=== PATIENT | female | born 1975 | race Caucasian/White ===

== ENCOUNTER → 2020-11-24 15:48 | Outpatient (CLI) | payer MEDICARE, MEDICAID, SELFPAY ==
--- NOTE | ~2020-11-24 | MM_ITS ---
EXAMINATION: MM screening charanjit BI w iggy HISTORY: Screening mammogram TECHNIQUE: Craniocaudal and mediolateral oblique 3-D tomosynthesis images were obtained and synthetic 2-D images were generated. CAD analysis was submitted and interpreted. COMPARISON: No prior mammogram is available for comparison at this institution. BREAST PARENCHYMAL COMPOSITION: The breasts are almost entirely fatty. FINDINGS: There are occasional benign-appearing microcalcifications. There is no evidence of suspicio us mass, calcification, or architectural distortion to suggest malignancy in either breast. There has been no suspicious interval change. IMPRESSION: 1. No mammographic evidence of malignancy. 2. Recommend routine screening mammography in one year. BI-RADS Category 2: Benign finding(s). Reviewed, dictated and finalized at location A.
== END ==
PROVIDERS: PCP Nurse Practitioner; Visit Provider Nurse Practitioner
DX: Z12.31 Encounter for screening mammogram for malignant neoplasm of breast (principal)
CPT/HCPCS: 77063; 77067

== ENCOUNTER 2021-06-02 08:41 | Outpatient (CLI) | payer OTHER, SELFPAY ==
--- NOTE | ~2021-06-02 | XR_ITS ---
XR knee LT 2V DATE: 06/02/2021 09:13 INDICATION: Left knee pain TECHNIQUE: AP and lateral views COMPARISON: None FINDINGS: There is slight periarticular spurring of the medial tibial plateau. No fracture or dislocation or joint effusion. No periosteal reaction or bone destruction. No radiopaq ue intra-articular loose body or chondral calcinosis. IMPRESSION: Minimal medial compartment osteoarthritis Reviewed, dictated and finalized at location A.
--- NOTE | ~2021-06-02 | XR_ITS ---
XR knee RT 2V DATE: 06/02/2021 09:13 INDICATION: Bilateral knee pain. No recent injury. TECHNIQUE: AP and lateral views COMPARISON: None FINDINGS: There is minimal periarticular spurring at the patellofemoral and medial compartments. No fracture or dislocation is evident. No radiopaque intra-articular loose body or chondrocalcinosis. No periosteal reaction or bone destruction. IMPRESSION: Mild osteoarthritis at the medial and patellofemoral compartments Reviewed, dictated and finalized at location A.
== END 2021-06-02 08:42 | disposition home or self-care (01) ==
DX: M17.0 Bilateral primary osteoarthritis of knee (principal)
CPT/HCPCS: 73560

== ENCOUNTER 2021-09-03 08:43 | Outpatient (CLI) | payer OTHER, SELFPAY ==
--- NOTE | ~2021-09-03 | XR_ITS ---
XR cervical spine 4-5V DATE: 09/03/2021 09:15 INDICATION: Neck pain TECHNIQUE: AP, lateral, swimmer views, mouth and swimmer views COMPARISON: 09/26/2014 MR cervical spine FINDINGS: There is reversal cervical curvature which may be due to muscle spasm. C1 and C2 are normally aligned and the odontoid process is intact. There is mild loss of interspace height and slight anterolisthesis at C2-3. There is slight anterolisthesis at C3-4. Moderately severe degenerative disc disease and anterior posterior spurring at C4-5, C5-6. Moderate degenerative disease at C6-7. There is uncovertebral joint spurring at C5-6 and C6-7. Bilateral prominent elongated C7 transverse processes. IMPRESSION: Reversal cervical curvature Cervical spondylosis, most pronounced at C4-5 and C5-6 Reviewed, dictated and finalized at location B.
--- NOTE | ~2021-09-03 | XR_ITS ---
EXAMINATION: XR lumbar spine 2-3V DATE: 09/03/2021 09:15 INDICATION: Low back pain TECHNIQUE: Anteroposterior and lateral views of the lumbar spine, and cone-down lateral view of the l umbosacral junction were obtained. COMPARISON: 07/30/2013 FINDINGS: There is a transitional S1 segment. There are 5 mm of anterolisthesis of L4 on L5. The vert ebral body heights are normal. There is mild loss of intervertebral disc space height at L3-4 and L4- 5. Small degenerative osteophytes project from the anterior endplates of multiple vertebral bodies. T here is moderate facet osteoarthritis of the lower lumbar spine. Phleboliths are noted in the pelvis. IMPRESSION: 1. Mild lumbar spondylosis with interval worsening since the comparison examination. Reviewed, dictated and finalized at location F. IMPRESSION: 1. Mild lumbar spondylosis with interval worsening since the comparison examina tion.
--- NOTE | ~2021-09-03 | XR_ITS ---
XR thoracic spine 2V DATE: 09/03/2021 09:15 INDICATION: Back pain TECHNIQUE: AP, lateral, swimmer views COMPARISON: None FINDINGS: Bilateral C7 elongated transverse processes. There are 11 rib-bearing thoracic vertebrae. There is prominent bridging osteophyte on the right at T8-9. No fracture or dislocation or bone destruction of the thoracic spine. The thoracic pedicles are intac t. No paraspinal soft tissue thickening. IMPRESSION: No fracture or bone destruction Prominent bridging osteophyte on the right at T8-9 Reviewed, dictated and finalized at location B.
== END 2021-09-03 08:44 | disposition home or self-care (01) ==
DX: M47.896 Other spondylosis, lumbar region (principal); M47.892 Other spondylosis, cervical region
CPT/HCPCS: 72050; 72070; 72100

== ENCOUNTER 2021-11-05 09:09 | Outpatient (CLI) | payer OTHER, SELFPAY ==
[2021-11-05 09:53] LABS: Basophils Absolute Auto 0.1 K/mm3 (0.0-0.1); Basophils Percent Auto 0.7 % (0.2-1.2); Eosinophils Absolute Auto 0.2 K/mm3 (0-0.3); Eosinophils Percent Auto 3.1 % (0-4.4); Hematocrit 43.2 % (37.0-47.0); Hemoglobin 13.7 g/dL (12.0-15.0); Immature Granulocyte Absolute 0.01 K/mm3 (0.00-0.031); Immature Granulocyte Percent A 0.1 % (0-0.5); Lymphocytes Absolute Auto 2.76 K/mm3 (0.9-3.2); Lymphocytes Percent Auto 40.9 % (18.3-44.2); Mean Corpuscular HGB Conc 31.7 g/dl (32-36); Mean Corpuscular Hemoglobin 28.3 pg (26-34); Mean Corpuscular Volume 89.3 fl (80-100); Mean Platelet Volume 11.3 fl (7.4-10.4); Monocytes Absolute Auto 0.6 K/mm3 (0.1-0.6); Monocytes Percent Auto 8.3 % (2.6-8.5); Neutrophils Absolute Auto 3.2 K/mm3 (1.3-6.7); Neutrophils Percent Auto 46.9 % (45.5-73.1); Platelet Count Result 183 k/mm3 (150-375); Red Blood Count 4.84 M/mm3 (4.2-5.4); Red Cell Distribution Width 13.8 % (11.5-14.5); White Blood Count 6.7 K/mm3 (4.5-10.0)
== END 2021-11-05 09:10 | disposition home or self-care (01) ==
LOC: ANHLAB 09:14
DX: L71.9 Rosacea, unspecified (principal)
CPT/HCPCS: 36415; 85025; 86038

== ENCOUNTER 2022-08-21 14:07 | Emergency (ER) | payer OTHER, SELFPAY ==
--- NOTE | ~2022-08-21 | CT_ITS ---
EXAMINATION: CT abdomen pelvis wo con DATE: 08/21/2022 16:26 INDICATION: Left flank pain, hematuria and nausea TECHNIQUE: Computed tomography (CT) of the abdomen and pelvis was performed without intravenous contr ast. The dose-length product was 657.77 mGy-cm. Automated exposure control and iterative reconstructi on technique were employed. COMPARISON: CT dated 08/06/2003. FINDINGS: Lung bases are unremarkable. Heart size normal. No significant pleural or pericardial effus ion. There is a small fat-containing umbilical hernia. There is left hydroureteronephrosis with exten sive periureteral edema extending into the pelvis. Bladder wall is mildly thickened with surrounding perivesical fatty infiltration. No renal stones identified. No ureteral stones. There is grade 1 dege nerative spondylolisthesis at L4-5. No acute osseous abnormality. The liver, spleen, pancreas, adrenal glands and right kidney are unremarkable. IMPRESSION: 1. Left hydroureteronephrosis with periureteral and perivesical fatty infiltration, suspicious for as cending urinary tract infection. Bladder is mildly thickened with surrounding inflammation, suspiciou s for cystitis. Alternatively, sequela of recently passed ureteral stone is possible. Reviewed, dictated and finalized at location A. IMPRESSION: 1. Left hydroureteronephrosis with periureteral and perivesical fatty infiltrat ion, suspicious for ascending urinary tract infection. Bladder is mildly thicke del[place] with surrounding inflammation, suspicious for cystitis. Alternatively, sequ tena of recently passed ureteral stone is possible.
[2022-08-21 14:18] VITALS: BP 150/99; PULSE 72; RESP 16; TEMP 36.8; O2SAT 100
[2022-08-21 14:31] LABS: Basophils Absolute Auto 0.1 K/mm3 (0.0-0.1); Basophils Percent Auto 0.5 % (0.2-1.2); Eosinophils Absolute Auto 0.2 K/mm3 (0-0.3); Eosinophils Percent Auto 1.4 % (0-4.4); Hematocrit 42.8 % (37.0-47.0); Hemoglobin 13.6 g/dL (12.0-15.0); Immature Granulocyte Absolute 0.02 K/mm3 (0.00-0.031); Immature Granulocyte Percent A 0.2 % (0-0.5); Lymphocytes Absolute Auto 2.62 K/mm3 (0.9-3.2); Lymphocytes Percent Auto 23.8 % (18.3-44.2); Mean Corpuscular HGB Conc 31.8 g/dl (32-36); Mean Corpuscular Hemoglobin 28.5 pg (26-34); Mean Corpuscular Volume 89.5 fl (80-100); Mean Platelet Volume 10.9 fl (7.4-10.4); Monocytes Absolute Auto 0.6 K/mm3 (0.1-0.6); Monocytes Percent Auto 5.8 % (2.6-8.5); Neutrophils Absolute Auto 7.5 K/mm3 (1.3-6.7); Neutrophils Percent Auto 68.3 % (45.5-73.1); Platelet Count Result 200 k/mm3 (150-375); Red Blood Count 4.78 M/mm3 (4.2-5.4); Red Cell Distribution Width 12.8 % (11.5-14.5)
[2022-08-21 14:48] LABS: Add Urine Microscopic? YES; Appearance Urine Clear (Clear); Bacteria Urine 1+ /hpf; Bilirubin Urine Negative (Negative); Blood Urine 1+ (Negative); Color Urine Yellow (Yellow); Glucose Urine UA Negative (Negative); Ketones Urine Trace mg/dL (Negative); Leukocyte Esterase Ur 1+ LEU/UL (Negative); Nitrate Urine Positive (Negative); Non Pathogenic Casts 0-2; Protein Urine 3+ mg/dL (Negative); Specific Grav Ur 1.017 (1.001-1.035); Squamous Epithelial Cell Urine None seen /hpf (Few); Urobilinogen Urine 0.2 mg/dL (<2.0); WBC Urine 51-100 /hpf; pH Urine 5.5 (5.0-9.0)
[2022-08-21 14:49] LABS: Alanine Aminotransferase 21 U/L (6-35); Albumin Level 4.7 g/dL (3.5-5.1); Alkaline Phosphatase 80 U/L (38-126); Anion Gap 7 mmol/L (8-16); Aspartate Amino Transferase 31 U/L (14-36); Bilirubin,Total 0.3 mg/dL (0.2-1.3); Blood Urea Nitrogen 14 mg/dL (7-17); Calcium 9.1 mg/dL (8.4-10.2); Carbon Dioxide 27 mmol/L (22-30); Chloride 105 mmol/L (98-107); Estimated CRCL calculation 98 ml/min; Estimated Glomerular Filt Rate > 60; Glucose 97 mg/dL (65-110); Lipase 57 U/L (23-300); Potassium 3.8 mmol/L (3.4-5.0); Sodium 139 mmol/L (137-145)
[2022-08-21 15:44] VITALS: BP 155/86; PULSE 66; RESP 16; O2SAT 99
[2022-08-21] MEDS: ACETAMINOPHEN 325 MG TABLET 650 MG PO (16:13)
--- NOTE | 2022-08-21 16:13 | ED.FEMALEGU ---
HPI - Female Genitourinary General Chief complaint: Urogenital-Female Stated complaint: high blood pressure/kidney pain Time Seen by Provider: 08/21/22 15:48 History of Present Illness HPI Narrative: Patient is an 47-year-old female with a history of IBS and narcotic dependence on Suboxone here for evaluation of right flank pain x1 day. Patient states that she woke up today with a soreness in her right flank. She states that she has been having about a week of burning with urination and her urine looking concentrated and dark. Reports nausea but no vomiting. She has chronic abdominal pain due to IBS, she saw her GI doctor about a week ago and was placed on Linzess. No fever, chills, constipation or diarrhea. Related Data Home Medications Medication Instructions Recorded Confirmed buprenorphine 4 mg-naloxone 1 mg 1 film buccal Q24H 04/26/22 08/18/22 sublingual film (Suboxone) buprenorphine 8 mg-naloxone 2 mg 1 film buccal DAILY 04/26/22 08/18/22 sublingual film (Suboxone) doxepin 25 mg capsule 25 mg PO DAILY 04/26/22 08/18/22 lisinopril 20 mg tablet 20 mg PO DAILY 04/26/22 08/18/22 sertraline 100 mg tablet 100 mg PO DAILY 04/26/22 08/18/22 clonidine HCl 0.2 mg tablet 0.2 mg PO DAILY 05/18/22 08/18/22 clonidine HCl 0.3 mg tablet 0.3 mg PO DAILY 05/18/22 08/18/22 folic acid 1 mg tablet 1 mg PO DAILY 05/18/22 08/18/22 multivitamin 1 tablet PO DAILY 05/18/22 08/18/22 biotin 1 mg capsule 1 mg PO DAILY 08/18/22 08/18/22 Allergies Allergy/AdvReac Type Severity Reaction Status Date / Time Penicillins Allergy Intermediate RASH/HIVES Verified 08/18/22 09:49 levofloxacin Allergy Mild Rash Verified 08/18/22 09:49 Review of Systems Review of Systems: Gen.: Denies fevers or chills Eyes: Denies eye pain or visual change ENT: Denies congestion Respiratory: Denies shortness of breath or cough CV: Denies chest pain or palpitations GI: Denies abdominal pain nausea, emesis or diarrhea reports burning and flank pain Musculoskeletal: Denies back pain or muscle pain Neuro: Denies numbness, tingling, weakness or focal weakness Skin: Denies rash Except as documented, all other systems reviewed and negative [facility] Past Medical History Medical History Anxiety Arthritis Asthma 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 Malignant Constipation Depression H/O: HTN (hypertension) History of hepatitis C History of ovarian cyst Hx of chondrosarcoma Hyperglycemia Previous known suicide attempt Right upper quadrant pain Screening mammogram, encounter for Ulcer Surgical History Surgical History History of dilation and curettage Hx of tubal ligation Social History Social History Smoking packs per day: 0.5 Smoking cigarettes per day: 10.0 Smoking status: Current every day smoker Tobacco type: cigarettes Alcohol intake: never Substance use: current Substance use type: marijuana Other substance usage details: daily Living arrangements: other Additional living arrangements comments: Occupation/Education: unemployed Additional occupation/education comments: disabled Gender identity (if verbalized by the patient): Female Sexual Orientation (if Verbalized by the Patient): Straight or Heterosexual Exam Narrative: APPEARANCE: Well appearing, no pain in distress, well-nourished. Head: Normocephalic and atraumatic. EYES: PERRLA/EOMI, conjunctivae clear NOSE: No nasal drainage EARS: External ear normal in appearance THROAT: Oropharynx is clear. Mucous membranes are moist. NECK: Supple. No adenopathy, no masses. RESPIRATORY: Airway patent, respirations nonlabored. Clear to auscultation bilaterally, no rales, rhonchi, wheezing. CARDIOVASCULAR: Regular rate and rhythm without murmurs, rubs, or gallops. ABD
[2022-08-21 17:07] VITALS: BP 139/87; PULSE 68; RESP 12; O2SAT 100
== END 2022-08-21 17:30 | disposition home or self-care (01) ==
PROVIDERS: Emergency Medicine; Emergency Provider Physician Assistant
DX: N12 Tubulo-interstitial nephritis, not specified as acute or chronic (principal); J45.909 Unspecified asthma, uncomplicated; I10 Essential (primary) hypertension; K58.9 Irritable bowel syndrome, unspecified; M19.90 Unspecified osteoarthritis, unspecified site; F41.9 Anxiety disorder, unspecified; F32.A Depression, unspecified; F17.210 Nicotine dependence, cigarettes, uncomplicated; Z86.19 Personal history of other infectious and parasitic diseases; N13.30 Unspecified hydronephrosis
CPT/HCPCS: 36415; 74176; 80053; 81001; 81025; 83690; 85025; 87077; 87086; 87186; 96365; 99284; A9270; J0696

== ENCOUNTER 2022-09-22 14:43 | Outpatient (CLI) | payer OTHER, SELFPAY ==
[2022-09-22 15:35] LABS: Hematocrit 42.9 % (37.0-47.0); Hemoglobin 13.6 g/dL (12.0-15.0); Mean Corpuscular HGB Conc 31.7 g/dl (32-36); Mean Corpuscular Hemoglobin 28.3 pg (26-34); Mean Corpuscular Volume 89.2 fl (80-100); Mean Platelet Volume 11.1 fl (7.4-10.4); Platelet Count Result 179 k/mm3 (150-375); Red Blood Count 4.81 M/mm3 (4.2-5.4); White Blood Count 7.3 K/mm3 (4.5-10.0)
[2022-09-22 15:48] LABS: Alanine Aminotransferase 22 U/L (6-35); Albumin Level 4.6 g/dL (3.5-5.1); Alkaline Phosphatase 72 U/L (38-126); Anion Gap 6 mmol/L (8-16); Aspartate Amino Transferase 29 U/L (14-36); Bilirubin,Total 0.3 mg/dL (0.2-1.3); Blood Urea Nitrogen 15 mg/dL (7-17); Calcium 9.4 mg/dL (8.4-10.2); Carbon Dioxide 29 mmol/L (22-30); Chloride 104 mmol/L (98-107); Estimated Glomerular Filt Rate > 60; Glucose 108 mg/dL (65-110); Potassium 3.7 mmol/L (3.4-5.0); Sodium 139 mmol/L (137-145)
[2022-09-22 16:57] LABS: Appearance Urine Clear (Clear); Bacteria Urine 1+ /hpf; Bilirubin Urine Negative (Negative); Blood Urine Negative (Negative); Color Urine Yellow (Yellow); Glucose Urine UA Negative (Negative); Ketones Urine Negative (Negative); Leukocyte Esterase Ur 1+ LEU/UL (Negative); Need Manual Microscopic Reviewed; Nitrate Urine Negative (Negative); Non Pathogenic Casts 0-2; Protein Urine Negative (Negative); RBC Urine 0-2 /hpf (0-2); Specific Grav Ur 1.021 (1.001-1.035); Squamous Epithelial Cell Urine Moderate /hpf (Few); Urobilinogen Urine 0.2 mg/dL (<2.0); WBC Urine 0-5 /hpf; pH Urine 5.5 (5.0-9.0)
[2022-09-22 17:06] LABS: Add Urine Microscopic? YES
[2022-09-26 14:17] LABS: Hepatitis C RNA, Quant PCR <15 IU/mL
== END 2022-09-22 14:44 | disposition home or self-care (01) ==
LOC: ANHLAB 14:52
PROVIDERS: PCP Nurse Practitioner Family; Referring Provider Nurse Practitioner Family; Visit Provider Nurse Practitioner Family
DX: R30.0 Dysuria (principal); K59.00 Constipation, unspecified; R10.11 Right upper quadrant pain; R10.31 Right lower quadrant pain; Z86.19 Personal history of other infectious and parasitic diseases
CPT/HCPCS: 36415; 80053; 81001; 85027; 87086; 87088; 87522

== ENCOUNTER 2022-12-01 09:35 | Outpatient (CLI) | payer OTHER, SELFPAY ==
--- NOTE | ~2022-12-01 | XR_ITS ---
AP view of the pelvis and AP and lateral views of the bilateral hips Clinical history: Pain Findings: No acute fracture or dislocation is seen. Osseous alignment is anatomic. Bilateral hip and SI joint spaces are preserved. Soft tissues are unremarkable. Impression: No significant abnormality is seen. Reviewed, dictated and finalized at location . Impression: No significant abnormality is seen.
--- NOTE | ~2022-12-01 | XR_ITS ---
Lumbosacral Spine: AP and lateral views Clinical History: Pain Findings: The normal lordotic curve is maintained. No fracture seen. There is 7 mm anterolisthesis of L3 over L4.. There is mild degenerative disc narrowing at L3-L4. Moderate facet arthropathy is noted in the mid to lower lumbar spine. The sacroiliac joints are normally outlined. Impression: 7 mm anterolisthesis of L3 over L4. Facet arthropathy, as above. Reviewed, dictated and finalized at location M. Impression: 7 mm anterolisthesis of L3 over L4. Facet arthropathy, as above.
== END 2022-12-01 09:36 | disposition home or self-care (01) ==
PROVIDERS: PCP Nurse Practitioner Family; Visit Provider Nurse Practitioner Family
DX: M54.40 Lumbago with sciatica, unspecified side (principal); R07.9 Chest pain, unspecified; M43.06 Spondylolysis, lumbar region; M47.896 Other spondylosis, lumbar region
CPT/HCPCS: 72100; 73521

== ENCOUNTER 2023-01-05 19:04 | Emergency (ER) | payer OTHER, SELFPAY ==
[2023-01-05] VITALS (8 sets, daily range): BP systolic 115–136; BP diastolic 74–86; PULSE 61–78; RESP 12–20; TEMP 36.3; O2SAT 94–100
--- NOTE | ~2023-01-05 | CT_ITS ---
EXAMINATION: CT abdomen pelvis w con DATE: 01/05/2023 21:29 INDICATION: Abdominal pain TECHNIQUE: Computed tomography (CT) of the abdomen and pelvis was performed with 100 cc Omnipaque 350 intravenous contrast. The dose-length product was 1201.41 mGy-cm. Automated exposure control and ite rative reconstruction technique were employed. COMPARISON: CT dated 08/21/2022. FINDINGS: There is dependent atelectasis. Heart size normal. No significant pleural or pericardial ef fusion. The liver, spleen, pancreas, adrenal glands and kidneys are unremarkable. Gallbladder is pres ent. Small fat-containing umbilical hernia. There is an accessory splenule. There is atherosclerosis of the aorta without aneurysm. No lymphadenopathy. Nonobstructive bowel gas pattern. Normal appendix. Gallbladder is present. There is grade 1 degenerative spondylolisthesis at L3-4. No acute osseous ab normality. IMPRESSION: 1. No acute abdominal abnormality. Reviewed, dictated and finalized at location A.
--- NOTE | ~2023-01-05 | US_ITS ---
US abdomen limited INDICATION: Abdomen pain. PROCEDURE: Realtime right upper abdominal ultrasound. COMPARISON: CT dated 01/05/2023 FINDINGS: The pancreas is normal without focal mass or pancreatic ductal dilation. Liver echotexture is normal without focal mass or intrahepatic biliary dilatation. There is normal directional flow i n the portal vein. The gallbladder is normal without stones, gallbladder wall thickening or pericholecystic fluid. Comm on bile duct measures 4.7 mm. No sonographic Ramirez's sign. Right renal echotexture is normal. No hy dronephrosis. IMPRESSION: 1: Normal limited abdominal ultrasound. Reviewed, dictated and finalized at location A.
[2023-01-05 19:29] LABS: Basophils Absolute Auto 0.1 K/mm3 (0.0-0.1); Basophils Percent Auto 0.9 % (0.2-1.2); Eosinophils Absolute Auto 0.2 K/mm3 (0-0.3); Eosinophils Percent Auto 3.2 % (0-4.4); Hematocrit 42.7 % (37.0-47.0); Hemoglobin 13.4 g/dL (12.0-15.0); Immature Granulocyte Absolute 0.02 K/mm3 (0.00-0.031); Immature Granulocyte Percent A 0.3 % (0-0.5); Lymphocytes Absolute Auto 3.09 K/mm3 (0.9-3.2); Lymphocytes Percent Auto 40.7 % (18.3-44.2); Mean Corpuscular HGB Conc 31.4 g/dl (32-36); Mean Corpuscular Hemoglobin 27.9 pg (26-34); Mean Corpuscular Volume 88.8 fl (80-100); Mean Platelet Volume 10.7 fl (7.4-10.4); Monocytes Absolute Auto 0.6 K/mm3 (0.1-0.6); Monocytes Percent Auto 7.9 % (2.6-8.5); Neutrophils Absolute Auto 3.6 K/mm3 (1.3-6.7); Platelet Count Result 205 k/mm3 (150-375); Red Blood Count 4.81 M/mm3 (4.2-5.4); Red Cell Distribution Width 13.1 % (11.5-14.5); White Blood Count 7.6 K/mm3 (4.5-10.0)
[2023-01-05 19:40] LABS: Alanine Aminotransferase 21 U/L (6-35); Albumin Level 4.4 g/dL (3.5-5.1); Alkaline Phosphatase 69 U/L (38-126); Anion Gap 6 mmol/L (8-16); Aspartate Amino Transferase 28 U/L (14-36); Bilirubin,Total 0.3 mg/dL (0.2-1.3); Blood Urea Nitrogen 17 mg/dL (7-17); Calcium 9.9 mg/dL (8.4-10.2); Carbon Dioxide 29 mmol/L (22-30); Chloride 103 mmol/L (98-107); Estimated CRCL calculation 77 ml/min; Estimated Glomerular Filt Rate > 60; Glucose 119 mg/dL (65-110); Lipase 81 U/L (23-300); Potassium 4.1 mmol/L (3.4-5.0); Sodium 138 mmol/L (137-145)
--- NOTE | 2023-01-05 20:37 | ED.ABDPAIN ---
HPI - Abdominal Pain General Chief Complaint: Abdominal Pain Stated Complaint: abdominal pain Time Seen by Provider: 01/05/23 20:37 History of Present Illness HPI narrative: Patient is a 47-year-old female with history of opiate use disorder, on Suboxone, cranial sarcoma, previously received Gamma radiation here with abdominal pain. She states that the abdominal pain began approximately 30 minutes prior to arrival to emergency department. Pain occurred right after she began eating pizza. It is located in her upper abdomen and is a burning and squeezing sensation. She endorses associated nausea, no vomiting and a subjective fever. Of note patient has been experiencing some dizziness, nausea, generalized fatigue over the last 1 week. She does note that a week and half to 2 weeks ago she decreased her Suboxone medication dosing due to constipation. Prior Tubal ligation and uterine ablation, still has her gallbladder and appendix. She does note that she had similar symptoms in the past, was seen here and diagnosed with pyelonephritis. She denies any dysuria or hematuria at this time. Related Data Home Medications Medication Instructions Recorded Confirmed buprenorphine 4 mg-naloxone 1 mg 1 film buccal Q24H 04/26/22 11/28/22 sublingual film (Suboxone) buprenorphine 8 mg-naloxone 2 mg 1 film buccal DAILY 04/26/22 11/28/22 sublingual film (Suboxone) doxepin 25 mg capsule 25 mg PO DAILY 04/26/22 11/28/22 lisinopril 20 mg tablet 20 mg PO DAILY 04/26/22 11/28/22 sertraline 100 mg tablet 100 mg PO DAILY 04/26/22 11/28/22 clonidine HCl 0.3 mg tablet 0.3 mg PO DAILY 05/18/22 11/28/22 folic acid 1 mg tablet 1 mg PO DAILY 05/18/22 11/28/22 multivitamin 1 tablet PO DAILY 05/18/22 11/28/22 biotin 1 mg capsule 1 mg PO DAILY 08/18/22 11/28/22 Allergies Allergy/AdvReac Type Severity Reaction Status Date / Time Penicillins Allergy Intermediate RASH/HIVES Verified 01/05/23 19:05 levofloxacin Allergy Mild Rash Verified 01/05/23 19:05 hydroxyzine AdvReac Rash Verified 01/05/23 19:05 Review of Systems Review of Systems: All systems reviewed & are unremarkable except as noted in HPI and below PMFSH Past Medical History Medical History Anxiety Arthritis Asthma 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 Malignant Constipation Depression H/O: HTN (hypertension) History of hepatitis C History of ovarian cyst Hx of chondrosarcoma Hyperglycemia Previous known suicide attempt Right upper quadrant pain Screening mammogram, encounter for Ulcer Surgical History Surgical History History of dilation and curettage Hx of tubal ligation Social History Social History Smoking packs per day: 1 Smoking cigarettes per day: 20.0 Years smoked: 25 Smoking pack-years: 25.00 Smoking status: Current every day smoker Tobacco type: cigarettes Alcohol intake: former Substance use: current Substance use type: marijuana Other substance usage details: daily Lack of Transportation: YES Lack of Food: Often True Current Housing: I Have Housing Concerned About Future Housing: No Difficulty Paying Gas/Electric Bills: YES Difficulty Paying for Meds: No Education: Trade/Vocational Certificate Difficulty w/ Childcare or Family Care: No Living arrangements: with family Additional living arrangements comments: Occupation/Education: unemployed Additional occupation/education comments: disabled Gender identity (if verbalized by the patient): Female Sexual Orientation (if Verbalized by the Patient): Straight or Heterosexual Spiritual care concerns: No Exam Narrative: GENERAL: Well-appearing, well-nourished, and in no acute distress. HEAD: Normocephalic, atraumatic. EYES: PERRLA and EOMI. ENT: Nares clear. Mucous membranes mois
[2023-01-05] MEDS: PANTOPRAZOLE SODIUM IV 40 MG VIAL IV PUSH (20:48)
[2023-01-05] MEDS: ONDANSETRON INJ 4 MG/2 ML VIAL IV PUSH (20:48)
[2023-01-05 20:58] LABS: Appearance Urine Slightly Cloudy (Clear); Bilirubin Urine Negative (Negative); Blood Urine Negative (Negative); Color Urine Yellow (Yellow); Glucose Urine UA Negative (Negative); Ketones Urine Negative (Negative); Leukocyte Esterase Ur Trace LEU/UL (Negative); Nitrate Urine Negative (Negative); Protein Urine Negative (Negative); Specific Grav Ur >= 1.030 (1.001-1.035); Urobilinogen Urine 0.2 mg/dL (<2.0)
[2023-01-05 21:05] LABS: Add Urine Microscopic? YES
[2023-01-05 21:07] LABS: Bacteria Urine Trace /hpf; RBC Urine 0-2 /hpf (0-2); Squamous Epithelial Cell Urine Many /hpf (Few); WBC Urine 0-3 /hpf (0-3)
--- NOTE | 2023-01-05 21:16 | ECG_ITS ---
Measurements Intervals [place] Rate: 68 P: 65 UT: 185 QRS: 34 QRSD: 92 T: 16 QT: 403 QTc: 430 Interpretive Statements SINUS RHYTHM BORDERLINE ST-T WAVE ABNORMALITY- ANT/INF LEADS BASELINE ARTIFACT- I, III, AVR, AVL BORDERLINE ECG NO PREVIOUS ECG AVAILABLE FOR COMPARISON Electronically Signed On 01-06-2023 7:49:37 CDT by Festus Reyes D.O.
[2023-01-05] MEDS: SODIUM CHLORIDE 0.9% IV 1,000 ML 999 ML IV CONT (21:33)
[2023-01-05 22:22] LABS: Influenza A QL RT-PCR Negative (Negative); Influenza B QL RT-PCR Negative (Negative); RSV RNA, RT-PCR Negative (Negative); SARS-CoV-2 RNA PCR Negative (Negative)
[2023-01-05] MEDS: KETOROLAC 15 MG/ML VIAL (*BKC) IV PUSH (22:59)
== END 2023-01-05 23:18 | disposition home or self-care (01) ==
PROVIDERS: Emergency Provider Student in an Organized Health Care Education/Training Program; PCP Nurse Practitioner Family
DX: R10.13 Epigastric pain (principal); R42 Dizziness and giddiness; R11.0 Nausea; Z20.822 Contact with and (suspected) exposure to COVID-19; I10 Essential (primary) hypertension; J45.909 Unspecified asthma, uncomplicated; M19.90 Unspecified osteoarthritis, unspecified site; F17.210 Nicotine dependence, cigarettes, uncomplicated; F41.9 Anxiety disorder, unspecified; F32.A Depression, unspecified; Z86.19 Personal history of other infectious and parasitic diseases; Z85.831 Personal history of malignant neoplasm of soft tissue; R94.31 Abnormal electrocardiogram [ECG] [EKG]
CPT/HCPCS: 36415; 74177; 76705; 80053; 81001; 83690; 85025; 87637; 93005; 96361; 96374; 96375; 99284; C9113; J1885; J2405; J7030; Q9967

== ENCOUNTER 2024-04-20 12:11 | Emergency (ER) | payer OTHER, SELFPAY ==
[2024-04-20] VITALS (7 sets, daily range): BP systolic 128–163; BP diastolic 76–101; PULSE 53–65; RESP 11–18; TEMP 36.5–36.8; O2SAT 96–100
--- NOTE | ~2024-04-20 | XR_ITS ---
EXAMINATION: XR chest 1V portable DATE: 04/20/2024 12:44 INDICATION: Chest pain TECHNIQUE: frontal view of the chest was obtained. COMPARISON: Chest radiograph dated 11/22/18 FINDINGS: The lungs remain clear with no focal airspace opacities, pulmonary edema, pleural effusion or pneumot horax. Heart size is normal. Visualized bones and soft tissues are unremarkable. IMPRESSION: 1. No acute cardiopulmonary disease. Reviewed, dictated and finalized at location A. FACTURING BUSINESS ANALYST
--- NOTE | 2024-04-20 12:18 | ECG_ITS ---
Test Date: 2024-04-20 12:21:22 Measurements Intervals [place] Rate: 59 P: 51 NE: 172 QRS: 34 QRSD: 102 T: 20 QT: 418 QTc: 416 Interpretive Statements SINUS BRADYCARDIA NONSPECIFIC ST-T WAVE ABNORMALITY- INFERIOR LEADS BORDERLINE ECG No previous ECG available for comparison Electronically Signed On 04-20-2024 16:56:38 ART THERAPY CERTIFIED SUPERVISOR by Festus Reyes D.O.
[2024-04-20] MEDS: ASPIRIN 81 MG CHEWABLE TABLET 324 MG PO (12:21)
[2024-04-20 12:53] LABS: Basophils Absolute Auto 0.1 K/mm3 (0.0-0.1); Basophils Percent Auto 0.5 % (0.2-1.2); Eosinophils Absolute Auto 0.1 K/mm3 (0-0.3); Eosinophils Percent Auto 1.1 % (0-4.4); Hematocrit 45.1 % (37.0-47.0); Hemoglobin 14.4 g/dL (12.0-15.0); Immature Granulocyte Absolute 0.02 K/mm3 (0.00-0.031); Immature Granulocyte Percent A 0.2 % (0-0.5); Lymphocytes Absolute Auto 2.93 K/mm3 (0.9-3.2); Lymphocytes Percent Auto 26.9 % (18.3-44.2); Mean Corpuscular HGB Conc 31.9 g/dl (32-36); Mean Corpuscular Hemoglobin 28.2 pg (26-34); Mean Corpuscular Volume 88.4 fl (80-100); Monocytes Absolute Auto 0.6 K/mm3 (0.1-0.6); Monocytes Percent Auto 5.6 % (2.6-8.5); Neutrophils Absolute Auto 7.2 K/mm3 (1.3-6.7); Neutrophils Percent Auto 65.7 % (45.5-73.1); Platelet Count Result 181 k/mm3 (150-375); Red Cell Distribution Width 13.2 % (11.5-14.5); White Blood Count 10.9 K/mm3 (4.5-10.0)
--- OUTSIDE RECORDS SUMMARY | 2024-04-20 12:56 | XMS_ITS | Encounter Summary ---
Author Organization [facility] Address [address] [place] [address] Care Team Providers Care Tank Insulator Rubber Name Role Phone Fabien Mustafa MD Primary Care Provider Junior Dunaway Md, MD Primary Care Provider Unavailable Timo Loera MD Primary Care Provider [phone] Encounter Details Date Type Department Care Team (Late st Contact Info) Description 08/11/2015 Abstract [facility] CONVERSION [address] [place] [address] Junior Urbina MD Social History Tobacco Use Types Packs/Day Years Used Date Smoking Tobacco: Never Assessed Comments Unknown Sex and Gender Information Value Date Recorded Sex Assigned at Not on file 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 Gender Identity Not on file Sexual Orientation Not on file documented as of this encounter Plan of Treatment Not on file documented as of this encounter Visit Diagnoses Not on filedocumented in this encounter Additional Health Concerns Infection Onset Date Last Indicated Resolved Time COVID-19 Confirmed 09/10/2019 09/10/2019 0 12:33 AM CDT COVID-19 Rule Out 09/11/2019 09/11/2019 09/11/2019 8:24 PM CDT documented as of this encounter Care Teams Tank Insulator Rubber Relationship Specialty Start Date End Date Fabien Mustafa MD PCP - General 04/28/16 06/09/22 Junior Urbina MD PCP - General 09/12/11 Timo Loera MD [address] [facility] [address] [place] [address] PCP - General INTERNAL MEDICINE 06/10/22 documented as of this encounter
--- OUTSIDE RECORDS SUMMARY | 2024-04-20 12:56 | XMS_ITS | Encounter Summary ---
Author Organization [facility] Address [facility] [place] [address] Care Team Providers Care Plant Attendant Or Assistant Operator Name Role Phone Fabien Mustafa MD Primary Care Provider U Timo Vargas MD Primary Care Provider [phone] Encounter Details Date Type Department Care Team (Late st Contact Info) Description 04/20/2020 [place] Message 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 No / Unsure 04/16/2020 11:32 AM FENCE ERECTOR documented as of this encounter Progress Notes * Halley Kennedy RN - 04/21/2020 8:34 AM CST Please advise E ERECTOR documented in this encounter Plan of Treatment Not on file documented as of this encounter Visit Diagnoses Not on filedocumented in this encounter Additional Health Concerns Assessment Noted Time PHQ-9 Depression Total Score: 4 04/16/19 21 11:54 AM FENCE ERECTOR documented as of this encounter Care Teams Plant Attendant Or Assistant Operator Relationship Specialty Start Date End Date Fabien Mustafa MD PCP - General 04/28/16 06/09/22 Timo Loera MD [address] [facility] [address] [place] [address] PCP - General INTERNAL MEDICINE 06/10/22 documented as of this encounter
--- OUTSIDE RECORDS SUMMARY | 2024-04-20 12:56 | XMS_ITS | Clinical Summary ---
Author Organization [facility] Address [address] [place] [address] Care Team Providers Care Vise Hand Name Role Phone Zulema Dunaway Unavailable Unavailable Bushra Martines MD Unavailable Leif Pfeiffer MD Unavailable [phone] Greg Valentine MD Primary Care Provide r Iqra Kemp NP Unavailable [phone] Allergies Active Allergy Reactions Criticality Noted Date Comments Hydroxyzine Rash,Shortness of breath High 07/14/2020 Levofloxacin In D5w Rash Medium 11/25/2015 Mushroom Rash Medium 06/24/2020 Penicillins Rash,Hives,Other (Se e comments) High Reaction: Rash, Hives, Reaction: Medications folic acid (FOLVITE) 1 mg tabletIndications:F olate Deficiency Take 1 tablet (1 mg total) by mouth daily 30 tablet 3 0 Active lisinopriL (PRINIVIL,ZESTRIL) 20 mg tablet Take 1 tablet (20 mg total) by mouth daily 30 tablet 3 0 Active sertraline (ZOLOFT) 100 mg tablet Take 1 tablet (100 mg total) by mouth nightly 30 tablet 0 Active albuterol HFA (PROVENTIL HFA,VENTOLIN HFA,PROAIR HFA) 90 mcg/actuation inhaler Inhale 1 puff every 6 (six) hours as needed 11/08/201 7 Active cloNIDine (CATAPRES) 0.1 mg tablet 2 Active doxepin (SINEquan) 25 mg capsule 1 Active buprenorphine-nalox one (SUBOXONE) 8-2 mg per film Apply 1 Film to cheek daily Active fluticasone propionate (FLONASE) 50 mcg/actuation nasal spray 4 Active ondansetron ODT (ZOFRAN-ODT) 4 mg disintegrating tablet 4 Active tiZANidine (ZANAFLEX) 4 mg tablet Take 1 tablet (4 mg total) by mouth nightly as needed for muscle spasms 30 tablet 1 4 Active Active Problems Problem Noted Date Diagnosed Date Transportation insecurity 08/30/2023 Overview (11/02/2023): Last Assessment & Plan: Condition: stable Follow up in: three months 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 At least 2000 to 3000 ml/day if not contraindicated medically. Encouraged to increase fiber intake to at least 20g daily. Urge top increase physical activity and exercise. Encouraged a regular period for elimination. Follow up in: three months with PCP Opioid abuse, in remission ([facility]) 11/04/2022 Overview (04/10/2023): Last Assessment & Plan: Condition: Stable Length (duration) of remission: unknown In the event of cravings or relapse, resource reviewed: Narcotics Anonymous https://na.org/ Follow up Provider: PCP Follow up in: Three months with PCP Overactive bladder 11/04/2022 Overview (04/10/2023): Last Assessment & Plan: Condition: stable Follow up in: three months with PCP Otalgia, right 04/21/2022 Acquired hypothyroidism 04/16/2020 Chronic pain of right knee 04/16/2020 Hip pain, chronic, right 04/16/2020 Opioid dependence with withdrawal ([facility]) 12/04 Assessment & Plan (12/21/2019 12:18 AM CDT): Patient having severe leg cramps and restless leg at this time. She is very restless. Will give another dose of Suboxone once to help with symptoms. Can increase if needed. Continue with supportive care. Dysuria 12/21/2019 Assessment & Plan (12/21/2019 12:28 AM CDT): Patient recently started experiencing dysuria, urinary frequency and urgency. Will check a UA to see if patient has UTI. 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 Patient has a history of hypertension. Improving with clonidine. Will continue to monitor. Anxiety 11/01/2011 Assessment & Plan (12/21/2019 12:19 AM CDT): Continue Zoloft and Librium. Anaclitic depression 11/01/2011 Assessment & Plan (12/21/2019 12:19 AM CDT): Continue Zoloft. Arthritis 11/01/2011 Recurrent major depressive disorder, in partial remission 11/01/2011 Overview (04/10/2023): Last Assessment & Plan: Condition: stable No recent mental health visit. Advised to follow up Medications: Taking medications as prescribed If taking medications, do not stop treatment without consulting healthcare provider. If symptoms worsen or do not improve/stabilize, notify health care provider right away. If thoughts of harming self or others notify health care provider immediately &/or seek urgent/emergent care including calling Suicide Hotline (194 or ) or 611. Follow up in three months with Psychologist/Counselor/SupportGroup/Psychiatrist and PCP Immunizations Name Administration Dates Next Due Influenza, Quadrivalent, Spl it, Preservative Free, Intramuscular 02/09/2021 PPD TEST 02/03/2006 Pneumococcal, Unspecified 09/19/2022 TD Preservative Free 1974 Tdap 03/09/2020 Surgical History Surgery Date Site/Laterality Comments TUBAL LIGATION Tubal Ligation - (Added by TW Conv) TUBAL LIGATION Medical History Medical History Date Comments Hypertension Anxiety and depression Arthritis Cancer ([facility]) ([facility]) Allergic rhinitis Dizziness Tinnitus Headache 2008 Anemia 1990 Asthma 1975 History of transfusion 1977 Substance abuse ([facility]) ([facility]) 1988 Family History Medical History Relation Name Comments Hypertension Father Jose Rashes / Skin problems Father Jose Rheum arthritis Father Jose Stroke Father Jose Cancer Maternal Grandmother Ngozi Hypertension Maternal Grandmother Ngozi Osteoarthritis Maternal Grandmother Ngozi Asthma Mother Chante Cancer Mother Chante Hypertension Mother Chante Osteoarthritis Mother Chante Thyroid disease Mother Chante Anxiety disorder Other 1 Anxiety (Sy mptom) - (Added by TW Conv) Hypertension Other 2 Hypertension - (Added by TW Conv) Cancer Other 3 Cancer - (Added by TW Conv) Diabetes Paternal Grandmother Radha Hearing loss Paternal Grandmother Radha Heart failure Paternal Grandmother Radha Hypertension Paternal Grandmother Radha Osteoarthritis Paternal Grandmother Radha Relation Name Status Comments Jose Maternal Grandmother Ngozi Mother Chante Other 1 Other 2 Other 3 Paternal Grandmother Radha Social History Tobacco Use Types Packs/Day Years Used Date Smoking Tobacco: Every Day Cigarettes Tobacco Cessation:Ready to Q uit: Not Asked; Counseling Given: Yes Alcohol Use Standard Drinks/Week Comments Not Currently 0 (1 standard drink = 0.6 oz pur e alcohol) AUDIT-C Answer Date Recorded Q1: How often do you have a drink containing alc ohol? Monthly or less 04/21/2022 Average Number of Drinks Not on file 023 Frequency of Binge Drinking Not on file 04/06 PHQ-2 Answer Date Recorded PHQ-2 Total Score (If total score is 3 or more points, staff should administer the PHQ-9) 2 12/21/2019 Comments No Sex and Gender Information Value Date Recorded Sex Assigned at Not on file Legal Sex Female 3:30 AM MANAGER MEDICAL AFFAIRS Gender Identity Female 01/19/2022 11:10 AM MANAGER MEDICAL AFFAIRS Sexual Orientation Choose not to disclose 2021 11:10 AM MANAGER MEDICAL AFFAIRS Obstetrics History Last Filed Vital Signs Vital Sign Reading Time Taken Comments Blood Pressure 160/92 11/02/2023 9:35 AM CDT Pulse 58 11/02/2023 9:35 AM CDT Temperature 36.9 C (98.4 F) 04/10/2023 8:36 AM MANAGER MEDICAL AFFAIRS Respiratory Rate 18 04/10/2023 8:36 AM MANAGER MEDICAL AFFAIRS Oxygen Saturation 97% 04/10/2023 8:36 AM MANAGER MEDICAL AFFAIRS Inhaled Oxygen Concentration - - Weight 89.6 kg (197 lb 9.6 oz) 11/02/2023 9:35 A M CDT Height 162.6 cm (5' 4 ) 11/02/2023 9:35 AM CDT Body Mass Index 33.92 11/02/2023 9:35 AM CDT Plan of Treatment Health Maintenance Due Date Last Done Comments Cervical Cancer Screening 1974 Colon Cancer Screening-Colonoscopy 1974 Pneumococcal vaccine <65 (1 of 2 - PCV) 1980 09/19/2022 Hepatitis B Screening 1992 Regular Well Visit/Exam 18-64 1992 Depression Screening 12/18/2020 12/19/2019, 12/19/19 20 Influenza Vaccine (#1) 2023 02/09/2021 Breast Cancer Screening-Mammogram 12/08/2023 023 Zoster Vaccine (1 of 2) 2024 DTaP/Tdap/Td Vaccine (2 - Td or Tdap) 03/09/203006/2020, 1974 Hepatitis C Screening Completed 06/30/2014 , 12/22/2011, 12/08/2011 Procedures Procedure Name Priority Date/Time Associated Diagnosis Comments SCREENING MAMMOGRAM BILATERAL W PEPITO Schedule Routine, Read Routine (OP Routine) 12/07/2022 10:30 AM CDT Screening mammogram, encounter for from Last 3 Months or Most Recently Relevant to Health Maintenance Results * Screening Mammogram Bilateral W [place] (12/07/2022 10:30 AM CDT) Anatomical Region Laterality Modality Breast Bilateral Mammography Narrative 12/16/2022 2:00 PM CDT Mammogram Technique: Bilateral Digital Breast Tomosynthesis, Bilateral C-view 2D Screening mammogram. Views obtained: bilateral craniocaudal and bilateral mediolateral oblique. Computer Aided Detection was performed. Mammogram Findings: The present examination has been compared to a prior [facility]. There are scattered areas of fibroglandular density. There is no suspicious abnormality in either breast. Impression: There is no mammographic evidence of malignancy. Annual screening mammography is recommended. OVERALL FINAL ASSESSMENT: BI-RADS CATEGORY 1: Negative. Procedure Note Charo Keen MD - 12/16/2022 Mammogram Technique: Bilateral Digital Breast Tomosynthesis, Bilateral C-view 2D Screening mammogram. Views obtained: bilateral craniocaudal and bilateral mediolateral oblique. Computer Aided Detection was performed. Mammogram Findings: The present examination has been compared to a prior [facility]. There are scattered areas of fibroglandular density. There is no suspicious abnormality in either breast. Impression: There is no mammographic evidence of malignancy. Annual screening mammography is recommended. OVERALL FINAL ASSESSMENT: BI-RADS CATEGORY 1: Negative. us Self Screening Mammogram IMG MAMMO PROCEDURES Fi nal Result from Last 3 Months or Most Recently Relevant to Health Maintenance Insurance [facility] [place] Member Subscriber Plan / Payer (Ef fective 2020-Present) Name:Elena Root Relation to Subscriber:Self Name:Elena Root Payer ID:[id number] (NAIC) Type:MEDICARE RISK OTHER Address: [address] [facility] [place] [place] Member Subscriber Plan / Payer (Ef fective 2020-Present) Name:Elena Root Relation to Subscriber:Self Name:Elena Root Payer ID:[id number] (NAIC) Type:MEDICARE RISK OTHER Address: [address] Advance Directives For more information, please contact: [phone] * Full Code (Latest Code Status on File) Date Activated Date Inactivated Comments 12/20/2019 1:41 PM 12/23/2019 8:11 PM Care Teams Vise Hand Relationship Specialty Start Date End Date Greg Valentine MD [address] [place] [address] PCP - General Emergency Medicine 12/07/22 Zulema Dunaway Business Change Manager Addiction Medicine 02/25/20 Bushra Martines MD Radiation Oncologist Radiation Oncology 04/27/22 Leif Pfeiffer MD Surgeon Neurosurgery 04/27/22 Iqra Kemp, CECILE [address] [place] [address] Nurse Practitioner Radiation Oncology 05/11/23
--- OUTSIDE RECORDS SUMMARY | 2024-04-20 12:56 | XMS_ITS | Encounter Summary ---
Author Organization [facility] Healthcare Address [address] [place] [address] Care Team Providers Care Fast Food Server Name Role Phone Unknown, Notinfile Primary Care Provider Unavail able Unknown, Notinfile Primary Care Provider Unavail able Zulema Dunaway Unavailable Unavailable Yas Gonzalez STORE CASHIER Primary Care Provider [phone] Bushra Martines MD Unavailable Leif Pfeiffer MD Unavailable Genny Pinto PhD Unavailable [phone] Greg Valentine MD Primary Care Provide r Iqra Kemp STORE CASHIER Unavailable [phone] Encounter Details Date Type Department Care Team (Late st Contact Info) Description 12/11/2019 [facility] Outreach [facility] Warm Hand Off Program [address] [place] [address] Dariela Vázquez Social History Tobacco Use Types Packs/Day Years Used Date Smoking Tobacco: Every Day Cigarettes Alcohol Use Standard Drinks/Week Comments Not Currently 0 (1 standard drink = 0.6 oz pur e alcohol) Comments No Sex and Gender Information Value Date Recorded Sex Assigned at Not on file Legal Sex Female 3:30 AM COMPUTER METEOROLOGIST Gender Identity Female 01/19/2022 11:10 AM COMPUTER METEOROLOGIST Sexual Orientation Choose not to disclose 2021 11:10 AM COMPUTER METEOROLOGIST documented as of this encounter Plan of Treatment Not on file documented as of this encounter Visit Diagnoses Not on filedocumented in this encounter Additional Health Concerns Infection Onset Date Last Indicated Resolved Time COVID: Suspected 04/10/2023 04/10/2023 04/10/2023 8:59 AM COMPUTER METEOROLOGIST COVID: Suspected 04/10/2023 04/10/2023 04/10/2023 2:39 PM COMPUTER METEOROLOGIST documented as of this encounter Care Teams Fast Food Server Relationship Specialty Start Date End Date Unknown, Notinfile PCP - General 09/27/18 12/19/19 Unknown, Notinfile PCP - General 12/20/19 12/09/21 Yas Gonzalez NP PCP - General Nephrology 12/10/21 12/06/22 Greg Valentine MD [address] [place], [place] [id number] PCP - General Emergency Medicine 12/07/22 Zulema Dunaway Straight Knife Cutter Machine Addiction Medicine 02/25/20 Bushra Martines MD Radiation Oncologist Radiation Oncology 04/27/22 Leif Pfeiffer MD Surgeon Neurosurgery 04/27/22 Genny Pinto, PhD Nurse Practitioner Radiation Oncology 04/27/22 05/10/23 Iqra Kemp NP [address] [place] [address] Nurse Practitioner Radiation Oncology 05/11/23 documented as of this encounter
--- OUTSIDE RECORDS SUMMARY | 2024-04-20 12:56 | XMS_ITS | Encounter Summary ---
Author Organization [facility] Address [address] [place] [address] Care Team Providers Care Glost Kiln Operator Name Role Phone Fabien Mustafa MD Primary Care Provider Junior Dunaway Md, MD Primary Care Provider Unavailable Timo Loera MD Primary Care Provider [phone] Encounter Details Date Type Department Care Team (Late st Contact Info) Description 03/25/2016 Abstract [facility] CONVERSION [address] [place] [address] Junior Urbina MD Social History Tobacco Use Types Packs/Day Years Used Date Smoking Tobacco: Never Assessed Comments Unknown Sex and Gender Information Value Date Recorded Sex Assigned at Not on file Legal Sex Female 2:04 PM MEDICAL INSTRUCTOR Gender Identity Not on file Sexual Orientation [...] documented as of this encounter Care Teams Glost Kiln Operator Relationship Specialty Start Date End Date Fabien Mustafa MD PCP - General 04/28/16 06/09/22 Junior Urbina MD PCP - General 09/12/11 Timo Loera MD [address] [facility] [address] [place] [address] PCP - General INTERNAL MEDICINE 06/10/22 documented as of this encounter
--- OUTSIDE RECORDS SUMMARY | 2024-04-20 12:56 | XMS_ITS | Encounter Summary ---
Author Organization [place] [facility] Address [address] [place] [address] Care Team Providers Care Principal Technical Architect Name Role Phone Fabien Mustafa MD Primary Care Provider Junior Dunaway Md, MD Primary Care Provider Unavailable Timo Loera MD Primary Care Provider [phone] Encounter Details Date Type Department Care Team (Late st Contact Info) Description 11/25/2015 Abstract [facility] CONVERSION [address] [place] [address] Junior Urbina MD Social History Tobacco Use Types Packs/Day Years Used Date Smoking Tobacco: Never Assessed Comments Unknown Sex and Gender Information Value Date Recorded Sex Assigned at Not on file Legal Sex Female 2:04 PM ODD JOBS DAY WORKER Gender Identity Not on file Sexual Orientation [...] documented as of this encounter Care Teams Principal Technical Architect Relationship Specialty Start Date End Date Fabien Mustafa MD PCP - General 04/28/16 06/09/22 Junior Urbina MD PCP - General 09/12/11 Timo Loera MD [address] [facility] [address] [place] [address] PCP - General INTERNAL MEDICINE 06/10/22 documented as of this encounter
--- OUTSIDE RECORDS SUMMARY | 2024-04-20 12:56 | XMS_ITS | Encounter Summary ---
Author Organization [facility] Address [address] [place] [address] Care Team Providers Care Order Runner Name Role Phone Fabien Mustafa MD Primary Care Provider Junior Dunaway Md, MD Primary Care Provider Unavailable Timo Loera MD Primary Care Provider [phone] Encounter Details Date Type Department Care Team (Late st Contact Info) Description 02/23/2016 Abstract [facility] CONVERSION [address] [place] [address] Junior Urbina MD Social History Tobacco Use Types Packs/Day Years Used Date Smoking Tobacco: Never Assessed Comments Unknown Sex and Gender Information Value Date Recorded Sex Assigned at Not on file Legal Sex Female 2:04 PM FOLDER GLUER OPERATOR Gender Identity Not on file Sexual Orientation [...] documented as of this encounter Care Teams Order Runner Relationship Specialty Start Date End Date Fabien Mustafa MD PCP - General 04/28/16 06/09/22 Junior Urbina MD PCP - General 09/12/11 Timo Loera MD [address] [facility] [address] [place] [address] PCP - General INTERNAL MEDICINE 06/10/22 documented as of this encounter
--- OUTSIDE RECORDS SUMMARY | 2024-04-20 12:56 | XMS_ITS | Referral Summary ---
Author Organization [facility] Address [address] [place] [address] Care Team Providers Care Director Of Analytical Development Name Role Phone Zulema Dunaway Unavailable Unavailable Bushra Martines MD Unavailable Leif Pfeiffer MD Unavailable Greg Valentine MD Primary Care Provide r Iqra Kemp NP Unavailable [phone] Allergies Active Allergy Reactions Criticality Noted [...] months with PCP Opioid abuse, in remission ([facility] 11/04/2022 Overview (04/10/2023): Last Assessment & Plan: [...] chronic, right 04/16/2020 Opioid dependence with withdrawal ([facility]) 12/04 Assessment & Plan (12/21/2019 12:18 AM [...] 11/16/2016 Asthma 05/09/2016 BMI 30.0-30.9,adult 11/24/2015 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 Follow up in three months with Psychologist/Counselor/SupportGroup/Psychiatrist and PCP Immunizations Name Administration Dates Next Due Influenza, Quadrivalent, Spl it, Preservative Free, Intramuscular 02/09/2021 PPD TEST 02/03/2006 Pneumococcal, Unspecified 09/19/2022 TD Preservative Free 1974 Tdap 03/09/2020 Social History Tobacco Use Types Packs/Day Years [...] on file Legal Sex Female 3:30 AM SOIL SCIENTIST Gender Identity Female 01/19/2022 11:10 AM SOIL SCIENTIST Sexual Orientation Choose not to disclose 2021 11:10 AM SOIL SCIENTIST Last Filed Vital Signs Vital Sign Reading Time Taken Comments Blood Pressure 160/92 11/02/2023 9:35 AM CDT Pulse 58 11/02/2023 9:35 AM CDT Temperature 36.9 C (98.4 F) 04/10/2023 8:36 AM SOIL SCIENTIST Respiratory Rate 18 04/10/2023 8:36 AM SOIL SCIENTIST Oxygen Saturation 97% 04/10/2023 8:36 AM SOIL SCIENTIST Inhaled Oxygen Concentration - - Weight 89.6 kg (197 lb 9.6 oz) 11/02/2023 9:35 A M CDT Height 162.6 cm (5' 4 ) 11/02/2023 9:35 AM CDT Body Mass Index 33.92 11/02/2023 9:35 AM CDT Plan of Treatment Not on file Procedures Procedure Name Priority Date/Time Associated Diagnosis Comments SCREENING MAMMOGRAM BILATERAL W TONY Schedule Routine, Read Routine (OP Routine) 12/07/2022 10:30 AM CDT Screening mammogram, encounter for from Last 3 Months or Most Recently Relevant to Health Maintenance Results * Screening Mammogram Bilateral W Tony (12/07/2022 10:30 AM CDT) Anatomical Region Laterality Modality Breast Bilateral Mammography Narrative 12/16/2022 2:00 PM CDT Mammogram Technique: Bilateral Digital Breast Tomosynthesis, Bilateral C-view 2D Screening mammogram. Views obtained: bilateral craniocaudal and bilateral mediolateral oblique. Computer Aided Detection was performed. Mammogram Findings: The present examination has been compared to a prior imaging study performed at [facility] on 11/24/2020. There are scattered areas of [...] to a prior imaging study performed at [facility] on 11/24/2020. There are scattered areas of fibroglandular density. There is no suspicious abnormality in either breast. Impression: There is no mammographic evidence of malignancy. Annual screening mammography is recommended. OVERALL FINAL ASSESSMENT: BI-RADS CATEGORY 1: Negative. us Self Screening Mammogram IMG MAMMO PROCEDURES Fi nal Result from Last 3 Months or Most Recently Relevant to Health Maintenance Insurance [facility] D[facility] [place] Member Subscriber Plan / Payer (Ef fective 2020-Present) Name:Elena Root Relation to Subscriber:Self Name:Elena Root Payer ID:[id number] (NAIC) Type:MEDICARE RISK OTHER Address: [address] [facility] [place] Member Subscriber Plan / Payer (Ef fective 2020-Present) Name:Elena Root Relation to Subscriber:Self Name:Elena Root Payer ID:[id number] (NAIC) Type:MEDICARE RISK OTHER Address: [address] Advance Directives For more information, please contact: [phone] * Full Code (Latest Code Status on File) Date Activated Date Inactivated Comments 12/20/2019 1:41 PM 12/23/2019 8:11 PM Care Teams Director Of Analytical Development Relationship Specialty Start Date End Date Greg Valentine MD [address] [place] [address] PCP - General Emergency Medicine 12/07/22 Zulema Dunaway Office Helper Clerical Addiction Medicine 02/25/20 Bushra Martines MD Radiation Oncologist Radiation Oncology 04/27/22 Leif Pfeiffer MD Surgeon Neurosurgery 04/27/22 Iqra Kemp NP [address] [place] [address] Nurse Practitioner Radiation Oncology 05/11/23
--- OUTSIDE RECORDS SUMMARY | 2024-04-20 12:56 | XMS_ITS | Encounter Summary ---
Author Organization [facility] Address [address] [place] [address] Care Team Providers Care Apron Trimmer Name Role Phone Fabien Mustafa MD Primary Care Provider Junior Dunaway Md, MD Primary Care Provider Unavailable Timo Loera MD Primary Care Provider [phone] Encounter Details Date Type Department Care Team (Late st Contact Info) Description 12/04/2012 Abstract [facility] CONVERSION [address] [place] [address] Junior Urbina MD Social History Tobacco Use Types Packs/Day Years Used Date Smoking Tobacco: Never Assessed Comments Unknown Sex and Gender Information Value Date Recorded Sex Assigned at Not on file Legal Sex Female 2:04 PM DIVER'S TENDER Gender Identity Not on file Sexual Orientation [...] documented as of this encounter Care Teams Apron Trimmer Relationship Specialty Start Date End Date Fabien Mustafa MD PCP - General 04/28/16 06/09/22 Junior Urbina MD PCP - General 09/12/11 Timo Loera MD [address] [facility] [address] [place] [address] PCP - General INTERNAL MEDICINE 06/10/22 documented as of this encounter
--- OUTSIDE RECORDS SUMMARY | 2024-04-20 12:56 | XMS_ITS | Encounter Summary ---
Author Organization [facility] Address [address] [place] [address] Care Team Providers Care Knife Glazer Name Role Phone Fabien Mustafa MD Primary Care Provider U Timo Vargas MD Primary Care Provider [phone] Encounter Details Date Type Department Care Team (Late st Contact Info) Description 04/20/[address] [facility] [address] [place] [address] Fabien Mustafa MD RE: Medication Questions Social History Tobacco Use Types Packs/Day Years [...] on file Legal Sex Female 2:04 PM COMMERCIAL FISHER Gender Identity Not on file Sexual Orientation Not on file COVID-19 Exposure Response Date Recorded In the last month, have you been in contact with someone who was confirmed or suspected to have Coronavirus / COVID-19? No / Unsure 04/16/2020 11:32 AM COMMERCIAL FISHER documented as of this encounter Plan of Treatment Not on file documented as of this encounter Visit Diagnoses Not on filedocumented in this encounter Additional Health Concerns Assessment Noted Time PHQ-9 Depression Total Score: 4 04/16/19 21 11:54 AM COMMERCIAL FISHER documented as of this encounter Care Teams Knife Glazer Relationship Specialty Start Date End Date Fabien Mustafa MD PCP - General 04/28/16 06/09/22 Tiom Loera MD [address] [address] PCP - General INTERNAL MEDICINE 06/10/22 documented as of this encounter
--- OUTSIDE RECORDS SUMMARY | 2024-04-20 12:56 | XMS_ITS | Encounter Summary ---
Author Organization [facility] Address [address] [place] [address] Care Team Providers Care Used Car Make Ready Worker Name Role Phone Fabien Mustafa MD Primary Care Provider U Timo Vargas MD Primary Care Provider [phone] Encounter Details Date Type Department Care Team (Late st Contact Info) Description 04/16/[address] [employer] [address] [facility] [address] [place] [address] [facility], [facility] Provider RE:X-ray results Social History Tobacco Use Types Packs/Day Years [...] on file Legal Sex Female 2:04 PM DRY WALL APPLICATOR Gender Identity Not on file Sexual Orientation Not on file COVID-19 Exposure Response Date Recorded In the last month, have you been in contact with someone who was confirmed or suspected to have Coronavirus / COVID-19? No / Unsure 04/16/2020 11:32 AM DRY WALL APPLICATOR documented as of this encounter Plan of Treatment Not on file documented as of this encounter Visit Diagnoses Not on filedocumented in this encounter Additional Health Concerns Assessment Noted Time PHQ-9 Depression Total Score: 4 04/16/19 21 11:54 AM DRY WALL APPLICATOR documented as of this encounter Care Teams Used Car Make Ready Worker Relationship Specialty Start Date End Date Fabien Mustafa MD PCP - General 04/28/16 06/09/22 Timo Loera MD [address] [address] PCP - General INTERNAL MEDICINE 06/10/22 documented as of this encounter
--- OUTSIDE RECORDS SUMMARY | 2024-04-20 12:56 | XMS_ITS | Encounter Summary ---
Author Organization [facility] Address [address] [place] [address] Care Team Providers Care Animal Care Assistant Name Role Phone Fabien Mustafa MD Primary Care Provider Junior Dunaway Md, MD Primary Care Provider Unavailable Timo Loera MD Primary Care Provider [phone] Encounter Details Date Type Department Care Team (Late st Contact Info) Description 09/09/2015 Abstract [facility] CONVERSION [address] [place] [address] Junior Urbina MD Social History Tobacco Use Types Packs/Day Years Used Date Smoking Tobacco: Never Assessed Comments Unknown Sex and Gender Information Value Date Recorded Sex Assigned at Not on file Legal Sex Female 2:04 PM HEDDLER TIER Gender Identity Not on file Sexual Orientation [...] documented as of this encounter Care Teams Animal Care Assistant Relationship Specialty Start Date End Date Fabien Mustafa MD PCP - General 04/28/16 06/09/22 Junior Urbina MD PCP - General 09/12/11 Timo Loera MD [address] [facility] [address] [place] [address] PCP - General INTERNAL MEDICINE 06/10/22 documented as of this encounter
--- OUTSIDE RECORDS SUMMARY | 2024-04-20 12:56 | XMS_ITS | Encounter Summary ---
Author Organization [facility] Address [address] [place] [address] Care Team Providers Care Antisqueak Chalker Name Role Phone Fabien Mustafa MD Primary Care Provider U Timo Vargas MD Primary Care Provider [phone] Encounter Details Date Type Department Care Team (Late st Contact Info) Description 04/24/[address] [employer] [address] [facility] [address] [place] [address] Fabien Mustafa MD RE: Medication [...] on file Legal Sex Female 2:04 PM NURSING MANAGER Gender Identity Not on file Sexual Orientation Not on file COVID-19 Exposure Response Date Recorded In the last month, have you been in contact with someone who was confirmed or suspected to have Coronavirus / COVID-19? No / Unsure 04/16/2020 11:32 AM NURSING MANAGER documented as of this encounter Plan of Treatment Not on file documented as of this encounter Visit Diagnoses Not on filedocumented in this encounter Additional Health Concerns Assessment Noted Time PHQ-9 Depression Total Score: 4 04/16/19 21 11:54 AM NURSING MANAGER documented as of this encounter Care Teams Antisqueak Chalker Relationship Specialty Start Date End Date Fabien Mustafa MD PCP - General 04/28/16 06/09/22 Timo Loera MD [address] [address] PCP - General INTERNAL MEDICINE 06/10/22 documented as of this encounter
--- OUTSIDE RECORDS SUMMARY | 2024-04-20 12:56 | XMS_ITS | Encounter Summary ---
Author Organization [facility] Address [address] [place] [address] Phone Care Team Providers Care Steam Heating Installer Name Role Phone Gume Zulema Unavailable Unavailable Yas Gonzalez WIRELESS FIELD TECHNICIAN Primary Care Provider [phone] Bushra Martines MD Unavailable Leif Pfeiffer MD Unavailable Genny Pinto PhD Unavailable [phone] Greg Valentine MD Primary Care Provide r Iqra Kemp WIRELESS FIELD TECHNICIAN Unavailable [phone] Encounter Details Date Type Department Care Team (Late st Contact Info) Description 03/24/2022 Telephone [facility] ([facility] - [facility] [address] [facility] 11th [place] [address] [place] [address] Otto Goodson MD [address] [place] [address] Social History Tobacco Use Types Packs/Day Years Used Date Smoking Tobacco: Every Day Cigarettes Alcohol Use Standard Drinks/Week Comments Not Currently 0 (1 standard drink = 0.6 oz pur e alcohol) PHQ-2 Answer Date Recorded PHQ-2 Total Score (If total score is 3 or more points, staff should administer the PHQ-9) 2 12/21/2019 Comments No Sex and Gender Information Value Date Recorded Sex Assigned at Not on file Legal Sex Female 3:30 AM DUE DILIGENCE COORDINATOR Gender Identity Female 01/19/2022 11:10 AM DUE DILIGENCE COORDINATOR Sexual Orientation Choose not to disclose 2021 11:10 AM DUE DILIGENCE COORDINATOR documented as of this encounter Plan of Treatment Not on file documented as of this encounter Visit Diagnoses Not on filedocumented in this encounter Additional Health Concerns Infection Onset Date Last Indicated Resolved Time COVID: Suspected 04/10/2023 04/10/2023 04/10/2023 8:59 AM DUE DILIGENCE COORDINATOR COVID: Suspected 04/10/2023 04/10/2023 04/10/2023 2:39 PM DUE DILIGENCE COORDINATOR documented as of this encounter Care Teams Steam Heating Installer Relationship Specialty Start Date End Date Yas Gonzalez NP PCP - General Nephrology 12/10/21 12/06/22 Greg Valentine MD [address] [place] [address] PCP - General Emergency Medicine 12/07/22 Zulema Dunaway Assistant Boys Track Coach Addiction Medicine 02/25/20 Bushra Martines MD Radiation Oncologist Radiation Oncology 04/27/22 Leif Pfeiffer MD Surgeon Neurosurgery 04/27/22 Genny Pinto, PhD Nurse Practitioner Radiation Oncology 04/27/22 05/10/23 Iqra Kemp NP [address] [place] [address] Nurse Practitioner Radiation Oncology 05/11/23 documented as of this encounter
--- OUTSIDE RECORDS SUMMARY | 2024-04-20 12:56 | XMS_ITS | Encounter Summary ---
Author Organization [facility] Address [address] [place] [address] Care Team Providers Care Cattle Knocker Name Role Phone Fabien Mustafa MD Primary Care Provider Junior Dunaway Md, MD Primary Care Provider Unavailable Timo Loera MD Primary Care Provider [phone] Encounter Details Date Type Department Care Team (Late st Contact Info) Description 12/09/2015 Abstract [facility] CONVERSION [address] [place] [address] Junior Urbina MD Social History Tobacco Use Types Packs/Day Years Used Date Smoking Tobacco: Never Assessed Comments Unknown Sex and Gender Information Value Date Recorded Sex Assigned at Not on file Legal Sex Female 2:04 PM TRADES HELPER Gender Identity Not on file Sexual Orientation [...] documented as of this encounter Care Teams Cattle Knocker Relationship Specialty Start Date End Date Fabien Mustafa MD PCP - General 04/28/16 06/09/22 Junior Urbina MD PCP - General 09/12/11 Timo Loera MD [address] [facility] [address] [place] [address] PCP - General INTERNAL MEDICINE 06/10/22 documented as of this encounter
--- OUTSIDE RECORDS SUMMARY | 2024-04-20 12:57 | XMS_ITS | Clinical Summary ---
Author Organization [facility] Address [address] [place] [address] Care Team Providers Care Relations Mgr Name Role Phone Timo Loera MD Primary Care Provider [phone] Allergies Active Allergy Reactions Criticality Noted Date Comments Levofloxacin Rash Low 11/25/2015 Mushrooms Rash Low 06/24/2020 Penicillins Rash,Hives,Other (se e comment) High 11/25/2015 Reaction: Rash, Hives, Reaction: Medications PROAIR HFA 108 (90 BASE) MCG/ACT inhaler Inhale 1 puff into the lungs every 6 (six) hours as needed for Wheezing or Shortness of breath. 7 Active ondansetron 4 MG disintegrating tablet Take 8 mg by mouth every 8 (eight) hours as needed for Nausea. 9 Active sertraline 100 MG tablet Take 100 mg by mouth every evening. 1 Active buprenorphine-nalo xone 8-2 MG FILMIndications:Me dication-Assisted Treatment (MAT) Place 1 Film inside cheek nightly at bedtime. Indications: Medication-As sisted Treatment (MAT) Active doxepin 25 MG capsule 1 Active folic acid 1 MG tablet Take 1 mg by mouth daily. 0 Active levothyroxine 50 MCG tabletIndications: Acquired hypothyroidism Take 1 tablet (50 mcg total) by mouth every morning. 30 tablet 2 1 Active lisinopril-hydroCH LOROthiazide 10-12.5 MG tabletIndications: Essential hypertension Take 1 tablet by mouth daily. 30 tablet 2 1 Active Active Problems Problem Noted Date Diagnosed Date Acquired hypothyroidism 04/16/2020 Hip pain, chronic, right 04/16/2020 Chronic pain of right knee 04/16/2020 Dysuria 12/21/2019 Overview (07/07/2020): Last Assessment & Plan: Patient recently started experiencing dysuria, urinary frequency and urgency. Will check a UA to see if patient has UTI. Opioid dependence with withdrawal ([facility]) 11/23/2018 Overview (12/26/2019): Last Assessment & Plan: Patient having severe leg cramps and restless leg at this time. She is very restless. Will give another dose of Suboxone once to help with symptoms. Can increase if needed. Continue with supportive care. 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 Arthritis 11/01/2011 Hypertension 09/15/2008 Overview (04/16/2020): Last Assessment & Plan: Pressures elevated on presentation. Patient has a history of hypertension. Improving with clonidine. Will continue to monitor. 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 12/26/2019 Encounter for preventive health examination 09/28/2011 11/15/2019 Immunizations Name Administration Dates Next Due Fluzone Adult - >Age 3 (Pref illed Syringe) 12/26/2019(Deferred: Patient Refused) Td (Tenivac) preservative free 1974 Tdap (Boostrix) 03/09/2020 Family History Medical History Relation Comments Stroke Father Depression Mother Hypertension Mother Relation Status Comments Brother Alive Father Mother Alive Social History Tobacco Use Types Packs/Day Years Used Date Smoking Tobacco: Every Day Cigarettes 0.3 30 Smokeless Tobacco: Never Tobacco Cessation:Ready to Q uit: Yes; Counseling Given: Yes Comments:TRYING TO QUIT Alcohol Use Standard Drinks/Week Comments No 0 (1 standard drink = 0.6 oz pur e alcohol) PHQ-2 Answer Date Recorded PHQ-2 Score - If the patient scores above 3, please move on to questions 3-9 2 04/16/2020 Comments No Sex and Gender Information Value Date Recorded Sex Assigned at Not on file Legal Sex Female 2:04 PM PRODUCT OPERATIONS ASSOCIATE Gender Identity Not on file Sexual Orientation Not on file Last Filed Vital Signs Vital Sign Reading Time Taken Comments Blood Pressure 140/102 09/21/2020 1:18 PM CDT Pulse 62 09/21/2020 1:18 PM CDT Temperature 36.8 C (98.3 F) 09/21/2020 1:18 PM CDT Respiratory Rate 16 09/21/2020 1:18 PM CDT Oxygen Saturation 98% 09/21/2020 1:18 PM CDT Inhaled Oxygen Concentration - - Weight 88.8 kg (195 lb 12.8 oz) 09/21/2020 1:18 PM CDT Height 162.6 cm (5' 4 ) 09/21/2020 1:18 PM CDT Body Mass Index 33.61 09/21/2020 1:18 PM CDT Plan of Treatment Health Maintenance Due Date Last Done Comments Cervical Cancer Screening Pa p Smear (Age 30 to 64) Every 3 Years 1974 Colorectal Cancer Screening Colonoscopy (10 Years) 1974 Annual Physical 1977 Pneumococcal Vaccine: Pediatrics (0 to 5 Years) and At-Risk Patients (6 to 64 Years) (1 of 2 - PCV) 1980 Hepatitis B Vaccines (1 of 3 - 19+ 3-dose series) 1993 Cervical Cancer Screening Pa p with HPV Testing (Age 30 to 64) Every 5 Years 08/06/2020 08/07/2015 Cervical Cancer Screening wi th HPV 08/06/2020 COVID-19 Vaccine (1 - 2023-2 5 season) 2023 Influenza Adult (#1) 2023 PHQ-2 (Physician [place]) 03/06/2024 Zoster Vaccines (1 of 2) 2024 Mammogram Screening 12/07/2024 12/07/2022 DTaP, Tdap and Td Vaccines ( 2 - Td or Tdap) 03/09/2030 03/09/2020, 1974 Hepatitis C Completed 01/11/2017, 01/11/2017, 01/11/2017 Meningococcal B Vaccine Aged Out No l onger eligible based on patient's age to complete this topic Meningococcal Vaccine Aged Out No aimee marilyn eligible based on patient's age to complete this topic RSV Immunizations Under 20 Months Aged Out No longer eligible b ased on patient's age to complete this topic Procedures Procedure Name Priority Date/Time Associated Diagnosis Comments MAMMOGRAM GENERIC (SCAN ORDER) Routine 12/07/2022 HEPATITIS A,B,& C Routine 01/11/2017 2:1 5 PM PRODUCT OPERATIONS ASSOCIATE OUTSIDE CYTOPATH CERV/VAG INTERPRET (PAP) Routine 08/07/2015 from Last 3 Months or Most Recently Relevant to Health Maintenance Results * MAMMOGRAM (12/07/2022) Anatomical Region Laterality Modality Other us Doc Med Group Scanned SCANNING Final Resu lt * (ABNORMAL) HEPATITIS A,B,& C (01/11/2017 2:15 PM PRODUCT OPERATIONS ASSOCIATE) HAV IGM NON-REACTIVE TESTING PERFORMED AT [facility] [id number] [place] [address] NR [facility] TO EPIC CONVERSION HEPATITIS B SURFACE AG NON-REACTIVE TESTING PERFORMED AT [address] [id number] NR [facility] TO EPIC CONVERSION HEP B SURFACE AB NON-REACTIVE TESTING PERFORMED AT [address] [id number] [facility] TO EPIC CONVERSION HEP B CORE TOTAL AB NON-REACTIVE TESTING PERFORMED AT [address] [id number] NR [facility] TO EPIC CONVERSION HEPATITIS C AB REACTIVE TESTING PERFORMED AT [address] [id number] CALLED RESULT CATHY AT [facility] AT 1845 READ BACK AND VERIFIED (A) NR [facility] TO EPIC CONVERSION 01/11/2017 2:15 PM PRODUCT OPERATIONS ASSOCIATE 01/11/2017 2:15 PM PRODUCT OPERATIONS ASSOCIATE Narrative [facility] TO EPIC CONVERSION - 01/12/2017 6:46 PM PRODUCT OPERATIONS ASSOCIATE Result Communication: Call patient with results us Radha Mustafa MD LABORATORY Final Result [facility] TO EPIC CONVERSION * PAP SMEAR WITH HPV (08/07/2015) 08/07/2015 us Documents Scanned SCANNING Final Result [facility] from Last 3 Months or Most Recently Relevant to Health Maintenance Insurance MEDICARE MEDICAID Care Teams Relations Mgr Relationship Specialty Start Date End Date Timo Loera MD [address] [address] PCP - General INTERNAL MEDICINE 06/10/22
--- OUTSIDE RECORDS SUMMARY | 2024-04-20 12:57 | XMS_ITS | Encounter Summary ---
Author Organization [facility] Address [address] [place] [address] Care Team Providers Care Bulb Grower Name Role Phone Fabien Mustafa MD Primary Care Provider U Timo Vargas MD Primary Care Provider [phone] Encounter Details Date Type Department Care Team (Late st Contact Info) Description 02/11/2020 Medication Management [facility] Family & Internal Medicine [address] [address] Fabien Mustafa MD Social History Tobacco Use Types Packs/Day Years Used Date Smoking Tobacco: Every Day Cigarettes 0.5 30 Smokeless Tobacco: Never Comments:TRYING TO QUIT Alcohol Use Standard Drinks/Week Comments No 0 (1 standard drink = 0.6 oz pur e alcohol) Comments No Sex and Gender Information Value Date Recorded Sex Assigned at Not on file Legal Sex Female 2:04 PM MEDICAL DIAGNOSTIC RADIOGRAPHER Gender Identity Not on file Sexual Orientation Not on file documented as of this encounter Plan of Treatment Not on file documented as of this encounter Visit Diagnoses Diagnosis Acquired hypothyroidism- Primary Unspecified hypothyroidism documented in this encounter Care Teams Bulb Grower Relationship Specialty Start Date End Date Fabien Mustafa MD PCP - General 04/28/16 06/09/22 Timo Loera MD [address] [facility] [address] [place] [address] PCP - General INTERNAL MEDICINE 06/10/22 documented as of this encounter
--- OUTSIDE RECORDS SUMMARY | 2024-04-20 12:57 | XMS_ITS | Encounter Summary ---
Author Organization [facility] Address [facility] [place] [address] Care Team Providers Care Replenishment Analyst Name Role Phone Fabien Mustafa MD Primary Care Provider U Timo Vargas MD Primary Care Provider [phone] Encounter Details Date Type Department Care Team (Late st Contact Info) Description 03/20/2017 Telephone [facility] [place], [place] [id number] Graciela Montano MD Three [facility] [address] [place] [address] Social History Tobacco Use Types Packs/Day Years Used Date Smoking Tobacco: Never Assessed Comments Unknown Sex and Gender Information Value Date Recorded Sex Assigned at Not on file Legal Sex Female 2:04 PM ARTIFICIAL FLOWERS STARCHER Gender Identity Not on file Sexual Orientation Not on file documented as of this encounter Plan of Treatment Not on file documented as of this encounter Visit Diagnoses Diagnosis History of Coumadin therapy- Primary documented in this encounter Additional Health Concerns Infection Onset Date Last Indicated Resolved Time COVID-19 Confirmed 09/10/2019 09/10/2019 0 12:33 AM CDT COVID-19 Rule Out 09/11/2019 09/11/2019 09/11/2019 8:24 PM CDT documented as of this encounter Care Teams Replenishment Analyst Relationship Specialty Start Date End Date Fabien Mustafa MD PCP - General 04/28/16 06/09/22 Timo Loera MD [address] [id number] PCP - General INTERNAL MEDICINE 06/10/22 documented as of this encounter
--- OUTSIDE RECORDS SUMMARY | 2024-04-20 12:57 | XMS_ITS | Encounter Summary ---
Author Organization [facility] Address [address] [place] [address] Care Team Providers Care Clinical Trials Data Coordinator Name Role Phone Fabien Mustafa MD Primary Care Provider U Timo Vargas MD Primary Care Provider [phone] Encounter Details Date Type Department Care Team (Late st Contact Info) Description 05/04/2020 [employer] Message [facility] [address] [place] [address] Fabien Mustafa MD RE: Other Social History Tobacco Use Types Packs/Day Years [...] on file Legal Sex Female 2:04 PM INTAKE MAN Gender Identity Not on file Sexual Orientation Not on file COVID-19 Exposure Response Date Recorded In the last month, have you been in contact with someone who was confirmed or suspected to have Coronavirus / COVID-19? No / Unsure 04/16/2020 11:32 AM INTAKE MAN documented as of this encounter Progress Notes * Halley Kennedy RN - 05/08/2020 10:06 AM CST Verified message was read by patient KE MAN documented in this encounter Plan of Treatment Not on file documented as of this encounter Visit Diagnoses Not on filedocumented in this encounter Additional Health Concerns Assessment Noted Time PHQ-9 Depression Total Score: 4 04/16/19 21 11:54 AM INTAKE MAN documented as of this encounter Care Teams Clinical Trials Data Coordinator Relationship Specialty Start Date End Date Fabien Mustafa MD PCP - General 04/28/16 06/09/22 Timo Loera MD [address] [address] PCP - General INTERNAL MEDICINE 06/10/22 documented as of this encounter
--- OUTSIDE RECORDS SUMMARY | 2024-04-20 12:57 | XMS_ITS | Encounter Summary ---
Author Organization [facility] Address [facility] [place] [address] Care Team Providers Care Assembler Leather Goods Name Role Phone Fabien Mustafa MD Primary Care Provider U Timo Vargas MD Primary Care Provider [phone] Encounter Details Date Type Department Care Team (Late st Contact Info) Description 10/17/2016 Abstract [facility] CONVERSION [address] [place] [address] , Generic Conversion, Social History Tobacco Use Types Packs/Day Years Used Date Smoking Tobacco: Never Assessed Comments Unknown Sex and Gender Information Value Date Recorded Sex Assigned at Not on file Legal Sex Female 2:04 PM TRANSPORTATION MAINTENANCE WORKER Gender Identity Not on file Sexual [...] documented as of this encounter Care Teams Assembler Leather Goods Relationship Specialty Start Date End Date Fabien Mustafa MD PCP - General 04/28/16 06/09/22 Timo Loera MD [address] [facility] [address] [place] [address] PCP - General INTERNAL MEDICINE 06/10/22 documented as of this encounter
--- OUTSIDE RECORDS SUMMARY | 2024-04-20 12:57 | XMS_ITS | Encounter Summary ---
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 Social History Tobacco Use Types Packs/Day Years [...] on file Legal Sex Female 2:04 PM COOK FROZEN DESSERT Gender Identity Not on file Sexual Orientation Not on file COVID-19 Exposure Response Date Recorded In the last month, have you been in contact with someone who was confirmed or suspected to have Coronavirus / COVID-19? No / Unsure 04/16/2020 11:32 AM COOK FROZEN DESSERT documented as of this encounter Progress Notes * Halley Kennedy RN - 05/04/2020 9:31 AM CST Message left for patient to return call FROZEN DESSERT * Halley Kennedy RN - 05/01/2020 8:06 AM CST Please advise FROZEN DESSERT documented in this encounter Plan of Treatment Not on file documented as of this encounter Visit Diagnoses Not on filedocumented in this encounter Additional Health Concerns Assessment Noted Time PHQ-9 Depression Total Score: 4 04/16/19 21 11:54 AM COOK FROZEN DESSERT documented as of this encounter Care Teams Attendance Officer Relationship Specialty Start Date End Date Fabien Mustafa MD PCP - General 04/28/16 06/09/22 Timo Loera MD [address] [address] PCP - General INTERNAL MEDICINE 06/10/22 documented as of this encounter
--- OUTSIDE RECORDS SUMMARY | 2024-04-20 12:57 | XMS_ITS | Encounter Summary ---
Author Organization [facility] Address [facility] [place] [address] Care Team Providers Care Nurse Administrator Name Role Phone Fabien Mustafa MD Primary Care Provider U Timo Vargas MD Primary Care Provider [phone] Encounter Details Date Type Department Care Team (Late st Contact Info) Description 11/08/2016 Abstract [facility] CONVERSION [address] [place] [address] , Generic Conversion, Social History Tobacco Use Types Packs/Day Years Used Date Smoking Tobacco: Never Assessed Comments Unknown Sex and Gender Information Value Date Recorded Sex Assigned at Not on file Legal Sex Female 2:04 PM GEAR NICKER Gender Identity Not on file Sexual Orientation [...] documented as of this encounter Care Teams Nurse Administrator Relationship Specialty Start Date End Date Fabien Mustafa MD PCP - General 04/28/16 06/09/22 Timo Loera MD [address] [facility] [address] [place] [address] PCP - General INTERNAL MEDICINE 06/10/22 documented as of this encounter
--- OUTSIDE RECORDS SUMMARY | 2024-04-20 12:57 | XMS_ITS | Encounter Summary ---
Author Organization [facility] Address [address] [place] [address] Care Team Providers Care Dramatic Reader Name Role Phone Fabien Mustafa MD Primary Care Provider U Timo Vargas MD Primary Care Provider [phone] Encounter Details Date Type Department Care Team (Late st Contact Info) Description 10/13/2020 [employer] [place] Message [facility] Family & Internal Medicine [address] [address] [employer] [place], [facility] Provider RE:incontinent supplies Social History Tobacco Use Types Packs/Day Years [...] on file Legal Sex 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 No / Unsure 09/21/2020 1:16 PM CDT documented as of this encounter Plan of Treatment Not on file documented as of this encounter Visit Diagnoses Not on filedocumented in this encounter Additional Health Concerns Assessment Noted Time PHQ-9 Depression Total Score: 4 04/16/19 21 11:54 AM FORGE TENDER documented as of this encounter Care Teams Dramatic Reader Relationship Specialty Start Date End Date Fabien Mustafa MD PCP - General 04/28/16 06/09/22 Timo Loera MD [address] [address] PCP - General INTERNAL MEDICINE 06/10/22 documented as of this encounter
--- OUTSIDE RECORDS SUMMARY | 2024-04-20 12:57 | XMS_ITS | Encounter Summary ---
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 No / Unsure 06/24/2020 12:31 PM CDT documented as of this encounter Plan of Treatment Not on file documented as of this encounter Visit Diagnoses Not on filedocumented in this encounter Additional Health Concerns Assessment Noted Time PHQ-9 Depression Total Score: 4 04/16/19 21 11:54 AM OPTICAL TECHNICIAN documented as of this encounter Care Teams Analysis Director Relationship Specialty Start Date End Date Fabien Mustafa MD PCP - General 04/28/16 06/09/22 Timo Loera MD 1188 [facility] [address] [place] [address] PCP - General INTERNAL MEDICINE 06/10/22 documented as of this encounter
--- OUTSIDE RECORDS SUMMARY | 2024-04-20 12:57 | XMS_ITS | Encounter Summary ---
Author Organization [facility] Address [facility] [place] [address] Care Team Providers Care Airport Operations Crew Member Name Role Phone Fabien Mustafa MD Primary Care Provider U Timo Vargas MD Primary Care Provider [phone] Encounter Details Date Type Department Care Team (Late st Contact Info) Description 02/14/2017 Abstract [facility] CONVERSION [address] [place] [address] , Generic Conversion, Social History Tobacco Use Types Packs/Day Years Used Date Smoking Tobacco: Never Assessed Comments Unknown Sex and Gender Information Value Date Recorded Sex Assigned at Not on file 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
--- OUTSIDE RECORDS SUMMARY | 2024-04-20 12:57 | XMS_ITS | Encounter Summary ---
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 No / Unsure 07/07/2020 12:36 PM CDT documented as of this encounter Plan of Treatment Not on file documented as of this encounter Visit Diagnoses Not on filedocumented in this encounter Additional Health Concerns Assessment Noted Time PHQ-9 Depression Total Score: 4 04/16/19 21 11:54 AM TYPEWRITER ASSEMBLY AND PARTS INSPECTOR documented as of this encounter Care Teams Vegetable Trimmer Relationship Specialty Start Date End Date Fabien Mustafa MD PCP - General 04/28/16 06/09/22 Timo Loera MD [address] [address] PCP - General INTERNAL MEDICINE 06/10/22 documented as of this encounter
--- OUTSIDE RECORDS SUMMARY | 2024-04-20 12:57 | XMS_ITS | Encounter Summary ---
Author Organization [facility] Address [facility] [place] [address] Care Team Providers Care Lockmaker Name Role Phone Fabien Mustafa MD Primary Care Provider U Timo Vargas MD Primary Care Provider [phone] Encounter Details Date Type Department Care Team (Late st Contact Info) Description 08/11/2018 Abstract [facility] CONVERSION [address] [place] [address] , Generic Conversion, Social History Tobacco Use Types Packs/Day Years Used Date Smoking Tobacco: Never Assessed Comments No Sex and Gender Information Value Date Recorded Sex Assigned at Not on file 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 [address] [place] [address] PCP - General INTERNAL MEDICINE 06/10/22 documented as of this encounter
--- OUTSIDE RECORDS SUMMARY | 2024-04-20 12:57 | XMS_ITS | Encounter Summary ---
Author Organization [facility] Address [facility] [place] [address] Care Team Providers Care Reroller Hand Name Role Phone Fabien Mustafa MD Primary Care Provider U Timo Vargas MD Primary Care Provider [phone] Encounter Details Date Type Department Care Team (Late st Contact Info) Description 02/09/2017 Abstract [facility] CONVERSION [address] [place] [address] , Generic Conversion, Social History Tobacco Use Types Packs/Day Years Used Date Smoking Tobacco: Never Assessed Comments Unknown Sex and Gender Information Value Date Recorded Sex Assigned at Not on file Legal Sex Female 2:04 PM UNBUNDLER Gender Identity Not on file Sexual Orientation [...] documented as of this encounter Care Teams Reroller Hand Relationship Specialty Start Date End Date Fabien Mustafa MD PCP - General 04/28/16 06/09/22 Timo Loera MD 1188 [facility] [address] [place] [address] PCP - General INTERNAL MEDICINE 06/10/22 documented as of this encounter
[2024-04-20 13:07] LABS: Alanine Aminotransferase 26 U/L (6-35); Albumin Level 4.6 g/dL (3.5-5.1); Alkaline Phosphatase 71 U/L (38-126); Anion Gap 14 mmol/L (4-12); Aspartate Amino Transferase 37 U/L (14-36); Bilirubin,Total 0.8 mg/dL (0.2-1.3); Blood Urea Nitrogen 17 mg/dL (7-17); Calcium 9.6 mg/dL (8.4-10.2); Carbon Dioxide 22 mmol/L (22-30); Chloride 106 mmol/L (98-107); Estimated CRCL calculation 86 ml/min; Estimated Glomerular Filt Rate > 60; Glucose 96 mg/dL (65-110); Lipase 42 U/L (23-300); Potassium 4.1 mmol/L (3.4-5.0); Sodium 142 mmol/L (137-145)
[2024-04-20 13:14] LABS: INR 0.9; Prothrombin Time 13.1 Seconds (11.1-14.7)
[2024-04-20 13:15] LABS: Partial Thromboplastin Time 25.4 Seconds (22.3-36.8)
[2024-04-20 13:16] LABS: Troponin I < 0.012 ng/mL (0.000-0.034)
[2024-04-20] MEDS: MECLIZINE HCL 25 MG TABLET PO (13:38)
--- NOTE | 2024-04-20 14:46 | ED_ITS ---
HPI - General Adult General Chief complaint: Chest Pain Stated complaint: htn, CP Time Seen by Provider: 04/20/24 12:47 History of Present Illness HPI narrative: Patient is a 49-year-old female who presents ER with dizziness. Began today. It causes her to feel hot and flushed, she develops tightness in her chest, and then she gets nauseous. She feels like the room is moving. Occurs when turning her head. No previous history of vertigo. Reports blood pressure elevated for EMS. She has been compliant with home medications. No fevers or chills. Related Data Home Medications ?Medication ?Instructions ?Recorded ?Confirmed ?Last Taken ?Type buprenorphine 4 mg-naloxone 1 mg 1 film buccal Q24H 04/26/22 11/28/22 Unknown History sublingual film (Suboxone) buprenorphine 8 mg-naloxone 2 mg 1 film buccal DAILY 04/26/22 11/28/22 Unknown History sublingual film (Suboxone) doxepin 25 mg capsule 25 mg PO DAILY 04/26/22 11/28/22 Unknown History sertraline 100 mg tablet 100 mg PO DAILY 04/26/22 11/28/22 Unknown History clonidine HCl 0.3 mg tablet 0.3 mg PO DAILY 05/18/22 11/28/22 Unknown History folic acid 1 mg tablet 1 mg PO DAILY 05/18/22 11/28/22 Unknown History multivitamin 1 tablet PO DAILY 05/18/22 11/28/22 Unknown History biotin 1 mg capsule 1 mg PO DAILY 08/18/22 11/28/22 Unknown History Allergies Allergy/AdvReac Type Severity Reaction Status Date / Time Penicillins Allergy Intermediate RASH/HIVES Verified 04/20/24 12:18 levofloxacin Allergy Mild Rash Verified 04/20/24 12:18 hydroxyzine AdvReac Rash Verified 04/20/24 12:18 Review of Systems 2 Review of Systems: All systems reviewed & are unremarkable except as noted in HPI and below Constitutional: Constitutional: Reports no additional constitutional complaints Eyes: Eyes: Reports no additional eye complaints ENT: Reports system reviewed and no additional complaints, except as documented Cardiovascular: Cardiovascular: Reports no additional cardiovascular complaints Gastrointestinal: Gastrointestinal: Reports no additional gastrointestinal complaints Musculoskeletal: Musculoskeletal: Reports no additional musculoskeletal complaints PMFSH Past Medical History Medical History Anxiety Arthritis Asthma 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 Malignant Constipation Depression H/O: HTN (hypertension) History of hepatitis C History of ovarian cyst Hx of chondrosarcoma Hyperglycemia Previous known suicide attempt Right upper quadrant pain Screening mammogram, encounter for Ulcer Surgical History Surgical History History of dilation and curettage Hx of tubal ligation Social History Social History Smoking packs per day: 1 Smoking cigarettes per day: 20.0 Years smoked: 25 Smoking pack-years: 25.00 Smoking status: Current every day smoker Tobacco type: cigarettes Alcohol intake: former Substance use: current Substance use type: marijuana Other substance usage details: daily Lack of Transportation: YES Lack of Food: Often True Current Housing: I Have Housing Concerned About Future Housing: No Difficulty Paying Gas/Electric Bills: YES Difficulty Paying for Meds: No Education: Trade/Vocational Certificate Difficulty w/ Childcare or Family Care: No Living arrangements: with family Additional living arrangements comments: Occupation/Education: unemployed Additional occupation/education comments: disabled Gender identity (if verbalized by the patient): Female Sexual Orientation (if Verbalized by the Patient): Straight or Heterosexual Spiritual care concerns: No Exam 2 Narrative: GENERAL: Well-appearing, well-nourished, and in no acute distress. HEAD: Normocephalic, atraumatic. EYES: PERRL and EOMI. ENT: Mucous membranes moist. TMs normal bilaterally. CHEST: Clear to auscultation. No respiratory distress. HEART: Regular rate and rhythm. Normal peripheral pulses. ABDOMEN: Soft, nontender, nondistended. EXTREMITIES: Normal range of motion. No edema. SKIN: Warm, dry, no rash. NEURO: Alert and oriented x3. PSYCH: Normal mood and affect. Course Course Emergency Course: Troponin negative x2. Dizziness improving with meclizine. Labs otherwise unremarkable. Appropriate for discharge home. Vital Signs Vital signs: Vital Signs Temperature 97.7 F 04/20/24 12:07 Pulse Rate 61 04/20/24 12:07 Respiratory Rate 18 04/20/24 12:07 Blood Pressure 159/98 H 04/20/24 12:07 Pulse Oximetry 100 04/20/24 12:07 Oxygen Delivery Room Air 04/20/24 12:07 Temperature 97.7 F 04/20/24 12:07 Pulse Rate 54 L 04/20/24 15:21 Respiratory Rate 16 04/20/24 15:21 Blood Pressure 128/76 04/20/24 15:21 Pulse Oximetry 96 04/20/24 15:21 Oxygen Delivery Room Air 04/20/24 12:23 Medical Decision Making Vital Signs Vital Signs: Vital Signs Temperature 97.7 F 04/20/24 12:07 Pulse Rate 61 04/20/24 12:07 Respiratory Rate 18 04/20/24 12:07 Blood Pressure 159/98 H 04/20/24 12:07 Pulse Oximetry 100 04/20/24 12:07 Oxygen Delivery Room Air 04/20/24 12:07 Temperature 97.7 F 04/20/24 12:07 Pulse Rate 54 L 04/20/24 15:21 Respiratory Rate 16 04/20/24 15:21 Blood Pressure 128/76 04/20/24 15:21 Pulse Oximetry 96 04/20/24 15:21 Oxygen Delivery Room Air 04/20/24 12:23 Lab Data 04/20/24 12:36 04/20/24 12:36 Labs: Lab Results 04/20/24 04/20/24 04/20/24 Range/Units 12:36 13:37 15:53 WBC 10.9 H (4.5-10.0) K/mm3 RBC 5.10 (4.2-5.4) M/mm3 Hgb 14.4 (12.0-15.0) g/dL Hct 45.1 (37.0-47.0) % MCV 88.4 (80-100) fl MCH 28.2 (26-34) pg MCHC 31.9 L (32-36) g/dl RDW 13.2 (11.5-14.5) % Plt Count 181 (150-375) k/mm3 MPV 11.0 H (7.4-10.4) fl Immature Gran % (Auto) 0.2 (0-0.5) % Neut % (Auto) 65.7 (45.5-73.1) % Lymph % (Auto) 26.9 (18.3-44.2) % [place] % (Auto) 5.6 (2.6-8.5) % Eos % (Auto) 1.1 (0-4.4) % Baso % (Auto) 0.5 (0.2-1.2) % Lymph # (Auto) 2.93 (0.9-3.2) K/mm3 [place] # (Auto) 0.6 (0.1-0.6) K/mm3 Eos # (Auto) 0.1 (0-0.3) K/mm3 Baso # (Auto) 0.1 (0.0-0.1) K/mm3 Abs Immat Gran (auto) 0.02 (0.00-0.031) K/mm3 Absolute Neuts (auto) 7.2 H (1.3-6.7) K/mm3 Absolute Nucleated RBC 0.000 (0.0-0.012) K/mm3 Nucleated RBC % 0.0 (0.0-0.2) % PT 13.1 (11.1-14.7) Seconds INR 0.9 APTT 25.4 (22.3-36.8) Seconds Sodium 142 (137-145) mmol/L Potassium 4.1 (3.4-5.0) mmol/L Chloride 106 (98-107) mmol/L Carbon Dioxide 22 (22-30) mmol/L Anion Gap 14 H (4-12) mmol/L BUN 17 (7-17) mg/dL Creatinine 0.66 L (0.7-1.0) mg/dL Estim Creat Clear Calc 86 ml/min Estimated GFR > 60 (59 - ) Glucose 96 (65-110) mg/dL Calcium 9.6 (8.4-10.2) mg/dL Total Bilirubin 0.8 (0.2-1.3) mg/dL AST 37 H (14-36) U/L ALT 26 (6-35) U/L Alkaline Phosphatase 71 (38-126) U/L Troponin I < 0.012 < 0.012 (0.000-0.034) ng/mL Total Protein 8.0 (6.3-8.2) g/dL Albumin 4.6 (3.5-5.1) g/dL Lipase 42 (23-300) U/L Urine Color Yellow (Yellow) Urine Appearance Clear (Clear) Urine pH 5.0 (5.0-9.0) Ur Specific [place] 1.025 (1.001-1.035) Urine Protein Trace (Negative) mg/dL Urine Glucose (UA) Negative (Negative) mg/dL Urine Ketones Trace H (Negative) mg/dL Ur Blood (Man) Negative (Negative) Urine Nitrate Negative (Negative) Urine Bilirubin Negative (Negative) Urine Urobilinogen 0.2 (<2.0) mg/dL Leukocyte Esterase Rfl Negative (Negative) AYESHA/UL Urine RBC 0-2 (0-2) /hpf Urine WBC 0-5 (0-3) /hpf Ur Squamous Epith Cells Occasional (Few) /hpf Urine Bacteria None seen /hpf Urine Casts 0-2 Imaging Data Radiologist's impression: ITS Impressions Chest X-Ray 04/20/24 13:06 IMPRESSION: 1. No acute cardiopulmonary disease. ECG Data EKG #1: ECG completion date: 04/20/24 ECG completion time: 12:21 EKG Interpretation: bradycardia (59), sinus rhythm, no ST changes, normal QRS, normal QT and NL axis Discharge Plan Discharge Clinical Impression: Vertigo Patient Disposition: Home, Self-Care Condition: Stable Instructions: Antibiotic Form, Vertigo (ED) Additional Instructions: Return ER if you have fever 100.4? F, he cannot keep down food water, you lose consciousness, or have additional concerns. Patient Language: Luxembourgish Prescriptions: No Action sertraline 100 mg tablet 100 mg PO DAILY buprenorphine-naloxone [Suboxone] 4-1 mg film 1 film buccal Q24H Rx Instructions: place 1 strip/tab under (each) side of tongue buprenorphine-naloxone [Suboxone] 8-2 mg film 1 film buccal DAILY doxepin 25 mg capsule 25 mg PO DAILY biotin 1 mg capsule 1 mg PO DAILY Linzess 290 mcg capsule 290 mcg PO DAILY 30 Days Qty: 30 5RF cetirizine 10 mg tablet 10 mg PO DAILY Qty: 30 0RF clonidine HCl 0.3 mg tablet 0.3 mg PO DAILY folic acid 1 mg tablet 1 mg PO DAILY multivitamin Tablet 1 tablet PO DAILY ondansetron 4 mg tablet,disintegrating 4 mg PO Q8H PRN (Reason: nausea and vomiting) Qty: 10 0RF oxybutynin chloride 5 mg tablet 5 mg PO BID Qty: 60 0RF fluticasone propionate 50 mcg/actuation spray,suspension 1 spray intranasal BID Qty: 16 0RF Rx Instructions: administer into each nostril lisinopril 20 mg tablet See Rx Instructions .ROUTE .COMPLEX Qty: 90 0RF Dose Instruction: TAKE 1 TABLET BY MOUTH DAILY Rx Instructions: TAKE 1 TABLET BY MOUTH DAILY Follow-up/Referrals: Love Melo APRN [Primary Care Provider] -
[2024-04-20 14:47] LABS: Add Urine Microscopic? YES; Appearance Urine Clear (Clear); Bacteria Urine None Seen /hpf; Bilirubin Urine Negative (Negative); Blood Urine Negative (Negative); Color Urine Yellow (Yellow); Glucose Urine UA Negative (Negative); Ketones Urine Trace mg/dL (Negative); Leukocyte Esterase Ur Negative LEU/UL (Negative); Nitrate Urine Negative (Negative); Non Pathogenic Casts 0-2; Protein Urine Trace mg/dL (Negative); RBC Urine 0-2 /hpf (0-2); Specific Grav Ur 1.025 (1.001-1.035); Squamous Epithelial Cell Urine Occasional /hpf (Few); Urobilinogen Urine 0.2 mg/dL (<2.0); WBC Urine 0-5 /hpf (0-3)
--- NOTE | 2024-04-20 15:15 | ECG_ITS ---
Test Date: 2024-04-20 15:21:11 Measurements Intervals [place] Rate: 49 P: 42 NV: 149 QRS: 32 QRSD: 89 T: 20 QT: 433 QTc: 392 Interpretive Statements SINUS BRADYCARDIA NONSPECIFIC ST ABNORMALITY- INFERIOR LEADS BASELINE ARTIFACT- I, II, III, AVR, AVL, AVF ABNORMAL ECG Compared to ECG 04/20/2024 12:21:22 HEART RATE HAS DECREASED Electronically Signed On 04-20-2024 17:00:06 STROKE BELT SANDER OPERATOR by Festus Reyes D.O.
[2024-04-20] MEDS: ONDANSETRON INJ 4 MG/2 ML VIAL IV PUSH (15:17)
[2024-04-20 16:19] LABS: Troponin I < 0.012 ng/mL (0.000-0.034)
== END 2024-04-20 16:44 | disposition home or self-care (01) ==
PROVIDERS: Emergency Provider Emergency Medicine; PCP Nurse Practitioner Family
DX: R42 Dizziness and giddiness (principal); R07.89 Other chest pain; J45.909 Unspecified asthma, uncomplicated; I10 Essential (primary) hypertension; M19.90 Unspecified osteoarthritis, unspecified site; F41.9 Anxiety disorder, unspecified; F32.A Depression, unspecified; F17.210 Nicotine dependence, cigarettes, uncomplicated; Z86.19 Personal history of other infectious and parasitic diseases; R00.1 Bradycardia, unspecified; R94.31 Abnormal electrocardiogram [ECG] [EKG]; Z79.899 Other long term (current) drug therapy
CPT/HCPCS: 36415; 71045; 80053; 81001; 83690; 84484; 85025; 85610; 85730; 93005; 96374; 99284; A9270; J2405

== ENCOUNTER 2024-06-07 08:57 | Outpatient (CLI) | payer OTHER, SELFPAY ==
--- NOTE | ~2024-06-07 | XR_ITS ---
AP lateral views of the right hip Clinical history: Pain Findings: No acute fracture or dislocation is seen. Osseous alignment is anatomic. Right hip joint is intact. Soft tissues are unremarkable. Impression: No significant abnormality is seen. Reviewed, dictated and finalized at location M. Impression: No significant abnormality is seen.
--- OUTSIDE RECORDS SUMMARY | 2024-06-07 09:05 | XMS_ITS | Encounter Summary ---
Author Organization [facility] Address [address] [place] [address] Phone Care Team Providers Care Csr Name Role Phone Gume Zulema Unavailable Unavailable Yas Gonzalez SHINGLE CUTTER Primary Care Provider [phone] Bushra Martines MD Unavailable Leif Pfeiffer MD Unavailable [phone] Genny Pinto PhD Unavailable [phone] Greg Valentine MD Primary Care Provide r Iqra Kemp SHINGLE CUTTER Unavailable [phone] Encounter Details Date Type Department Care Team (Late st Contact Info) Description 03/24/2022 Telephone [facility] ([facility]) - [facility] ENT [address] [facility] Advanced Medicine 11th [place] [address] [place] [address] Otto Goodson MD [address] [place] [address] Social History Tobacco Use Types Packs/Day Years [...] on file Legal Sex Female 3:30 AM FREIGHT SALES BROKER Gender Identity Female 01/19/2022 11:10 AM FREIGHT SALES BROKER Sexual Orientation Choose not to disclose 2021 11:10 AM FREIGHT SALES BROKER documented as of this encounter Plan of Treatment Not on file documented as of this encounter Visit Diagnoses Not on filedocumented in this encounter Additional Health Concerns Infection Onset Date Last Indicated Resolved Time COVID: Suspected 04/10/2023 04/10/2023 04/10/2023 8:59 AM FREIGHT SALES BROKER COVID: Suspected 04/10/2023 04/10/2023 04/10/2023 2:39 PM FREIGHT SALES BROKER documented as of this encounter Care Teams Csr Relationship Specialty Start Date End Date Yas Gonzalez NP PCP - General Nephrology 12/10/21 12/06/22 Greg Valentine MD [address] [place] [address] PCP - General Emergency Medicine 12/07/22 Zulema Dunaway Flatwork Assembler Addiction Medicine 02/25/20 Bushra Martines MD Radiation Oncologist Radiation Oncology 04/27/22 Leif Pfeiffer MD Surgeon Neurosurgery 04/27/22 Genny Pinto, PhD Nurse Practitioner Radiation Oncology 04/27/22 05/10/23 Iqra Kemp NP [address] [place] [address] Nurse Practitioner Radiation Oncology 05/11/23 documented as of this encounter
--- OUTSIDE RECORDS SUMMARY | 2024-06-07 09:05 | XMS_ITS | Encounter Summary ---
Author Organization [facility] Address [address] [place] [address] Care Team Providers Care Chief Lock Operator Name Role Phone Fabien Mustafa MD Primary Care Provider Junior Dunaway Md, MD Primary Care Provider Unavailable Timo Loera MD Primary Care Provider [phone] Encounter Details Date Type Department Care Team (Late st Contact Info) Description 08/11/2015 Abstract [facility] CONVERSION [address] [place] [address] Junior Urbina MD Social History Tobacco Use Types Packs/Day Years Used Date Smoking Tobacco: Never Assessed Comments Unknown Sex and Gender Information Value Date Recorded Sex Assigned at Not on file Legal Sex Female 2:04 PM TELEHEALTH DIRECTOR Gender Identity Not on file Sexual Orientation [...] documented as of this encounter Care Teams Chief Lock Operator Relationship Specialty Start Date End Date Fabien Mustafa MD PCP - General 04/28/16 06/09/22 Junior Urbina MD PCP - General 09/12/11 Timo Loera MD [address] [facility] [address] [place] [address] PCP - General INTERNAL MEDICINE 06/10/22 documented as of this encounter
--- OUTSIDE RECORDS SUMMARY | 2024-06-07 09:05 | XMS_ITS | Encounter Summary ---
Author Organization [facility] Address [address] [place] [address] Care Team Providers Care Tourist Information Officer Name Role Phone Fabien Mustafa MD Primary Care Provider Junior Dunaway Md, MD Primary Care Provider Unavailable Timo Loera MD Primary Care Provider [phone] Encounter Details Date Type Department Care Team (Late st Contact Info) Description 09/09/2015 Abstract [facility] CONVERSION [address] [place] [address] Junior Urbina MD Social History Tobacco Use Types Packs/Day Years Used Date Smoking Tobacco: Never Assessed Comments Unknown Sex and Gender Information Value Date Recorded Sex Assigned at Not on file Legal Sex Female 2:04 PM RN LONG TERM CARE Gender Identity Not on file Sexual Orientation [...] documented as of this encounter Care Teams Tourist Information Officer Relationship Specialty Start Date End Date Fabien Mustafa MD PCP - General 04/28/16 06/09/22 Junior Urbina MD PCP - General 09/12/11 Timo Loera MD [address] [facility] [address] [place] [address] PCP - General INTERNAL MEDICINE 06/10/22 documented as of this encounter
--- OUTSIDE RECORDS SUMMARY | 2024-06-07 09:05 | XMS_ITS | Encounter Summary ---
Author Organization [facility] Address [address] [place] [address] Care Team Providers Care Research Chief Engineer Name Role Phone Fabien Mustafa MD Primary Care Provider Junior Dunaway Md, MD Primary Care Provider Unavailable Timo Loera MD Primary Care Provider [phone] Encounter Details Date Type Department Care Team (Late st Contact Info) Description 12/04/2012 Abstract [facility] CONVERSION [address] [place] [address] Junior Urbina MD Social History Tobacco Use Types Packs/Day Years Used Date Smoking Tobacco: Never Assessed Comments Unknown Sex and Gender Information Value Date Recorded Sex Assigned at Not on file Legal Sex Female 2:04 PM ELECTRONIC SPECIALIST Gender Identity Not on file Sexual Orientation [...] documented as of this encounter Care Teams Research Chief Engineer Relationship Specialty Start Date End Date Fabien Mustafa MD PCP - General 04/28/16 06/09/22 Junior Urbina MD PCP - General 09/12/11 Timo Loera MD [address] [facility] [address] [place] [address] PCP - General INTERNAL MEDICINE 06/10/22 documented as of this encounter
--- OUTSIDE RECORDS SUMMARY | 2024-06-07 09:05 | XMS_ITS | Referral Summary ---
Author Organization [facility] Address [address] [place] [address] Care Team Providers Care Film And Video Editor Name Role Phone Zulema Dunaway Unavailable Unavailable Bushra Martines MD Unavailable Leif Pfeiffer MD Unavailable [phone] Greg Valentine MD Primary Care Provide r Iqra Kemp NP Unavailable [phone] Allergies Active Allergy Reactions Criticality Noted [...] months with PCP Opioid abuse, in remission 11/04/2022 Overview (04/10/2023): Last Assessment & Plan: [...] chronic, right 04/16/2020 Opioid dependence with withdrawal 12/21/2019 Assessment & Plan (12/21/2019 12:18 AM CDT): [...] 11/16/2016 Asthma 05/09/2016 BMI 30.0-30.9,adult 11/24/2015 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 Follow up in three months with Psychologist/Counselor/SupportGroup/Psychiatrist and PCP Immunizations Immunization Administration Dates Next Due Influenza, Quadrivalent, Spl [...] on file Legal Sex Female 3:30 AM MARKETING TECHNOLOGY COORDINATOR Gender Identity Female 01/19/2022 11:10 AM MARKETING TECHNOLOGY COORDINATOR Sexual Orientation Choose not to disclose 2021 11:10 AM MARKETING TECHNOLOGY COORDINATOR Last Filed Vital Signs Vital Sign Reading Time Taken Comments Blood Pressure 160/92 11/02/2023 9:35 AM CDT Pulse 58 11/02/2023 9:35 AM CDT Temperature 36.9 C (98.4 F) 04/10/2023 8:36 AM MARKETING TECHNOLOGY COORDINATOR Respiratory Rate 18 04/10/2023 8:36 AM MARKETING TECHNOLOGY COORDINATOR Oxygen Saturation 97% 04/10/2023 8:36 AM MARKETING TECHNOLOGY COORDINATOR Inhaled Oxygen Concentration - - Weight 89.6 [...] to a prior imaging study performed at [facility] on 11/24/2020. There are [...] to a prior imaging study performed at [facility] on 11/24/2020. There are scattered areas of fibroglandular density. There is no suspicious abnormality in either breast. Impression: There is no mammographic evidence of malignancy. Annual screening mammography is recommended. OVERALL FINAL ASSESSMENT: BI-RADS CATEGORY 1: Negative. us Self Screening Mammogram IMG MAMMO PROCEDURES Fi nal Result from Last 3 Months or Most Recently Relevant to Health Maintenance Insurance [facility] [place] Member Subscriber Plan / Payer (Ef fective 2020-Present) Name:Elena Root Relation to Subscriber:Self Name:Elena Root Payer ID:[id number] (NAIC) Type:MEDICARE RISK OTHER Address: [address] [facility] [place] [place] Advance Directives For more information, please contact: [phone] * Full Code (Latest Code Status on File) Date Activated Date Inactivated Comments 12/20/2019 1:41 PM 12/23/2019 8:11 PM Care Teams Film And Video Editor Relationship Specialty Start Date End Date Greg Valentine MD [address] [place], [place] [id number] PCP - General Emergency Medicine 12/07/22 Zulema Dunaway Mirror Specialist Addiction Medicine 02/25/20 Bushra Martines MD Radiation Oncologist Radiation Oncology 04/27/22 Leif Pfeiffer MD Surgeon Neurosurgery 04/27/22 Iqra Kemp, CECILE [address] [place] [address] Nurse Practitioner Radiation Oncology 05/11/23
--- OUTSIDE RECORDS SUMMARY | 2024-06-07 09:05 | XMS_ITS | Clinical Summary ---
Author Organization [facility] Address [address] [place] [address] Care Team Providers Care Appliquer Name Role Phone Zulema Dunaway Unavailable Unavailable Bushra Martines MD Unavailable Leif Pfeiffer MD Unavailable [phone] Greg Valentine MD Primary Care Provide r Iqra Kemp NP Unavailable [phone] Allergies Active Allergy Reactions Criticality Noted [...] immediately &/or seek urgent/emergent care including calling [email or web address] Hotline (184 or ) or 823. Follow up in three months with Psychologist/Counselor/SupportGroup/Psychiatrist [...] Comments Hypertension Anxiety and depression Arthritis Cancer (HCC) Allergic rhinitis Dizziness Tinnitus Headache 2008 Anemia 1990 Asthma 1976 History of transfusion 1977 Substance abuse ([facility]) 1989 Family History Medical History Relation Name Comments [...] Paternal Grandmother Radha Relation Name Status Comments Father Jose Maternal Grandmother Ngozi Mother Chante Other [...] on file Legal Sex Female 3:30 AM EDUCATIONAL PSYCHOLOGY TEACHER Gender Identity Female 01/19/2022 11:10 AM EDUCATIONAL PSYCHOLOGY TEACHER Sexual Orientation Choose not to disclose 2021 11:10 AM EDUCATIONAL PSYCHOLOGY TEACHER Obstetrics History Last Filed Vital Signs Vital Sign Reading Time Taken Comments Blood Pressure 160/92 11/02/2023 9:35 AM CDT Pulse 58 11/02/2023 9:35 AM CDT Temperature 36.9 C (98.4 F) 04/10/2023 8:36 AM EDUCATIONAL PSYCHOLOGY TEACHER Respiratory Rate 18 04/10/2023 8:36 AM EDUCATIONAL PSYCHOLOGY TEACHER Oxygen Saturation 97% 04/10/2023 8:36 AM EDUCATIONAL PSYCHOLOGY TEACHER Inhaled Oxygen Concentration - - Weight 89.6 kg (197 lb 9.6 oz) 11/02/2023 9:35 A M CDT Height 162.6 cm (5' 4 ) 11/02/2023 9:35 AM CDT Body Mass Index 33.92 11/02/2023 9:35 AM CDT Plan of Treatment Health Maintenance Due Date Last Done Comments Cervical Cancer Screening 1974 Colon Cancer Screening-Colonoscopy 1974 Hepatitis B Screening 1992 Regular Well Visit/Exam 18-64 1992 Pneumococcal vaccine <65 (1 of 2 - PCV) 1993 09/19/2022 Depression Screening 12/18/2020 12/19/2019, 12/19/19 20 Influenza [...] to a prior imaging study performed at [facility] on 11/24/2020. There are scattered areas of [...] to a prior imaging study performed at [facility] on 11/24/2020. There are scattered areas of fibroglandular density. There is no suspicious abnormality in either breast. Impression: There is no mammographic evidence of malignancy. Annual screening mammography is recommended. OVERALL FINAL ASSESSMENT: BI-RADS CATEGORY 1: Negative. us Self Screening Mammogram IMG MAMMO PROCEDURES Fi nal Result from Last 3 Months or Most Recently Relevant to Health Maintenance Insurance Member Subscriber Plan / Payer (Ef fective 2020-Present) Name:Elena Root Relation to Subscriber:Self Name:Dk Elena Coy Payer ID:[id number] (NAIC) Type:MEDICARE RISK OTHER Address: [address] [facility] [place] Advance Directives For more information, please contact: [phone] * Full Code (Latest Code Status on File) Date Activated Date Inactivated Comments 12/20/2019 1:41 PM 12/23/2019 8:11 PM Care Teams Appliquer Relationship Specialty Start Date End Date Greg Valentine MD [address] [place] [address] PCP - General Emergency Medicine 12/07/22 Zulema Dunaway Scaler Packer Addiction Medicine 02/25/20 Bushra Martines MD Radiation Oncologist Radiation Oncology 04/27/22 Leif Pfeiffer MD Surgeon Neurosurgery 04/27/22 Iqra Kemp NP [address] [place] [address] Nurse Practitioner Radiation Oncology 05/11/23
--- OUTSIDE RECORDS SUMMARY | 2024-06-07 09:06 | XMS_ITS | Encounter Summary ---
Author Organization [facility] Address [address] [place] [address] Care Team Providers Care Forming Machine Tender Name Role Phone Fabien Mustafa MD Primary Care Provider U Timo Vargas MD Primary Care Provider [phone] Encounter Details Date Type Department Care Team (Late st Contact Info) Description 10/13/2020 Electric [employer] Message [facility] Family & Internal Medicine [address] [address] [employer], [facility] Provider RE:incontinent supplies Social History Tobacco Use [...] on file Legal Sex Female 2:04 PM FOUNDER & CEO Gender Identity Not on file Sexual Orientation [...] Total Score: 4 04/16/19 21 11:54 AM FOUNDER & CEO documented as of this encounter Care Teams Forming Machine Tender Relationship Specialty Start Date End Date Fabien Mustafa MD PCP - General 04/28/16 06/09/22 Timo Loera MD [address] [address] PCP - General INTERNAL MEDICINE 06/10/22 documented as of this encounter
--- OUTSIDE RECORDS SUMMARY | 2024-06-07 09:06 | XMS_ITS | Encounter Summary ---
Author Organization [facility] Address [facility]ly [facility] [place] [address] Care Team Providers Care Directory Assistance Operator Name Role Phone Fabien Mustafa MD Primary Care Provider U Timo Vargas MD Primary Care Provider [phone] Encounter Details Date Type Department Care Team (Late st Contact Info) Description 04/20/2020 [employer] Message [facility] [address] [place] [address] Fabien Mustafa MD RE: Question [...] on file Legal Sex Female 2:04 PM FRENCH TRANSLATOR Gender Identity Not on file Sexual Orientation Not on file COVID-19 Exposure Response Date Recorded In the last month, have you been in contact with someone who was confirmed or suspected to have Coronavirus / COVID-19? No / Unsure 04/16/2020 11:32 AM FRENCH TRANSLATOR documented as of this encounter Progress Notes * Halley Kennedy RN - 04/21/2020 8:34 AM CST Please advise CH TRANSLATOR documented in this encounter Plan of Treatment Not on file documented as of this encounter Visit Diagnoses Not on filedocumented in this encounter Additional Health Concerns Assessment Noted Time PHQ-9 Depression Total Score: 4 04/16/19 21 11:54 AM FRENCH TRANSLATOR documented as of this encounter Care Teams Directory Assistance Operator Relationship Specialty Start Date End Date Fabien Mustafa MD PCP - General 04/28/16 06/09/22 Timo Loera MD [address] [facility] [place] [address] PCP - General INTERNAL MEDICINE 06/10/22 documented as of this encounter
--- OUTSIDE RECORDS SUMMARY | 2024-06-07 09:06 | XMS_ITS | Clinical Summary ---
Author Organization [facility] Address [address] [place] [address] Care Team Providers Care Coconut Cooker Name Role Phone Timo Loera MD Primary Care Provider [phone] Allergies Active Allergy Reactions Criticality Noted Date [...] patient has UTI. 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 Chronic pain 07/01/2015 Nerve damage 07/01/2015 [...] Noted Date Diagnosed Date Resolved Date 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/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 12/26/2019 Encounter for preventive health examination [...] on file Legal Sex Female 2:04 PM WEARING APPAREL FOLDER Gender Identity Not on file Sexual Orientation [...] Vaccine (1 - 2023-2 5 season) 2023 PHQ-2 (Physician [place]) 03/06/2024 Zoster Vaccines (1 of 2) 2024 [...] A,B,& C Routine 01/11/2017 2:1 5 PM WEARING APPAREL FOLDER OUTSIDE CYTOPATH CERV/VAG INTERPRET (PAP) Routine 08/07/2015 from Last 3 Months or Most Recently Relevant to Health Maintenance Results * MAMMOGRAM (12/07/2022) Anatomical Region Laterality Modality Other us Doc Med [facility] Scanned SCANNING Final Resu lt * (ABNORMAL) HEPATITIS A,B,& C (01/11/2017 2:15 PM WEARING APPAREL FOLDER) HAV IGM NON-REACTIVE TESTING PERFORMED AT [facility] [address] [place] [address] NR [facility] TO EPIC CONVERSION HEPATITIS B SURFACE AG NON-REACTIVE TESTING PERFORMED AT [place] [id number] NR [facility] TO EPIC CONVERSION HEP B SURFACE AB NON-REACTIVE TESTING PERFORMED AT [place] [id number] [facility] TO EPIC CONVERSION HEP B CORE TOTAL AB NON-REACTIVE TEST[place] [address] NR [facility] TO EPIC CONVERSION HEPATITIS C AB REACTIVE TESTING PERFORMED AT [place] [id number] CALLED RESULT CATHY AT [facility] AT 1845 READ BACK AND VERIFIED (A) NR [facility] TO EPIC CONVERSION 01/11/2017 2:15 PM WEARING APPAREL FOLDER 01/11/2017 2:15 PM WEARING APPAREL FOLDER Narrative [facility] TO EPIC CONVERSION - 01/12/2017 6:46 PM WEARING APPAREL FOLDER Result Communication: Call patient with results us Radha Mustafa MD LABORATORY Final Result [facility] TO EPIC CONVERSION * PAP SMEAR WITH HPV (08/07/2015) 08/07/2015 us Documents Scanned SCANNING Final [facility] from Last 3 Months or Most Recently Relevant to Health Maintenance Insurance MEDICARE MEDICAID Care Teams Coconut Cooker Relationship Specialty Start Date End Date Timo Loera MD [address] [facility] [address] [place] [address] PCP - General INTERNAL MEDICINE 06/10/22
--- OUTSIDE RECORDS SUMMARY | 2024-06-07 09:06 | XMS_ITS | Encounter Summary ---
Author Organization [facility] Address [address] [place] [address] Care Team Providers Care It Help Desk Technician Name Role Phone Fabien Mustafa MD Primary Care Provider Junior Dunaway Md, MD Primary Care Provider Unavailable Timo Loera MD Primary Care Provider [phone] Encounter Details Date Type Department Care Team (Late st Contact Info) Description 02/23/2016 Abstract [facility] CONVERSION [address] [place] [address] Junior Urbina MD Social History Tobacco Use Types Packs/Day Years Used Date Smoking Tobacco: Never Assessed Comments Unknown Sex and Gender Information Value Date Recorded Sex Assigned at Not on file Legal Sex Female 2:04 PM AWNING FINISHER Gender Identity Not on file Sexual Orientation [...] documented as of this encounter Care Teams It Help Desk Technician Relationship Specialty Start Date End Date Fabien Mustafa MD PCP - General 04/28/16 06/09/22 Junior Urbina MD PCP - General 09/12/11 Timo Loera MD [address] [facility] [address] [place] [address] PCP - General INTERNAL MEDICINE 06/10/22 documented as of this encounter
--- OUTSIDE RECORDS SUMMARY | 2024-06-07 09:06 | XMS_ITS | Encounter Summary ---
Author Organization [facility] Address [address] [place] [address] Care Team Providers Care Manager Scientific Name Role Phone Fabien Mustafa MD Primary Care Provider Junior Dunaway Md, MD Primary Care Provider Unavailable Timo Loera MD Primary Care Provider [phone] Encounter Details Date Type Department Care Team (Late st Contact Info) Description 11/25/2015 Abstract [facility] CONVERSION [address] [place] [address] Junior Urbina MD Social History Tobacco Use Types Packs/Day Years Used Date Smoking Tobacco: Never Assessed Comments Unknown Sex and Gender Information Value Date Recorded Sex Assigned at Not on file Legal Sex Female 2:04 PM HEAD TRIMMER Gender Identity Not on file Sexual Orientation [...] documented as of this encounter Care Teams Manager Scientific Relationship Specialty Start Date End Date Fabien Mustafa MD PCP - General 04/28/16 06/09/22 Junior Urbina MD PCP - General 09/12/11 Timo Loera MD [address] [facility] [address] [place] [address] PCP - General INTERNAL MEDICINE 06/10/22 documented as of this encounter
--- OUTSIDE RECORDS SUMMARY | 2024-06-07 09:06 | XMS_ITS | Encounter Summary ---
Author Organization [facility] Address [facility] [place] [address] Care Team Providers Care Electroencephalographic Technician Name Role Phone Fabien Mustafa MD Primary Care Provider U Timo Vargas MD Primary Care Provider [phone] Encounter Details Date Type Department Care Team (Late st Contact Info) Description 02/09/2017 Abstract [facility] CONVERSION [address] [place] [address] , Generic Conversion, Social History Tobacco Use Types Packs/Day Years Used Date Smoking Tobacco: Never Assessed Comments Unknown Sex and Gender Information Value Date Recorded Sex Assigned at Not on file Legal Sex Female 2:04 PM FLEECE TIER Gender Identity Not on file Sexual [...] documented as of this encounter Care Teams Electroencephalographic Technician Relationship Specialty Start Date End Date Fabien Mustafa MD PCP - General 04/28/16 06/09/22 Timo Loera MD [address] [facility] [address] [place] [address] PCP - General INTERNAL MEDICINE 06/10/22 documented as of this encounter
--- OUTSIDE RECORDS SUMMARY | 2024-06-07 09:06 | XMS_ITS | Encounter Summary ---
Author Organization [facility] Address [address] [place] [address] Care Team Providers Care Taper Operator Name Role Phone Fabien Mustafa MD Primary Care Provider U Timo Vargas MD Primary Care Provider [phone] Encounter Details Date Type Department Care Team (Late st Contact Info) Description 07/20/2020 [employer] Message Enc [facility] Family & Internal Medicine [address] [address] Fabien Mustafa MD RE: Follow [...] on file Legal Sex Female 2:04 PM SPINNER IRON Gender Identity Not on file Sexual Orientation [...] Total Score: 4 04/16/19 21 11:54 AM SPINNER IRON documented as of this encounter Care Teams Taper Operator Relationship Specialty Start Date End Date Fabien Mustafa MD PCP - General 04/28/16 06/09/22 Timo Loera MD [address] [address] PCP - General INTERNAL MEDICINE 06/10/22 documented as of this encounter
--- OUTSIDE RECORDS SUMMARY | 2024-06-07 09:06 | XMS_ITS | Encounter Summary ---
Author Organization [facility] Address [address] [place] [address] Care Team Providers Care Central Office Maintainer Name Role Phone Fabien Mustafa MD Primary Care Provider U Timo Vargas MD Primary Care Provider Encounter Details Date Type Department Care Team (Late st Contact Info) Description 04/24/2020 [employer] Message [facility] [address] [place] [address] Fabien Mustafa MD RE: Medication [...] on file Legal Sex Female 2:04 PM HUMAN RESOURCES OFFICE ASSISTANT Gender Identity Not on file Sexual Orientation Not on file COVID-19 Exposure Response Date Recorded In the last month, have you been in contact with someone who was confirmed or suspected to have Coronavirus / COVID-19? No / Unsure 04/16/2020 11:32 AM HUMAN RESOURCES OFFICE ASSISTANT documented as of this encounter Plan of Treatment Not on file documented as of this encounter Visit Diagnoses Not on filedocumented in this encounter Additional Health Concerns Assessment Noted Time PHQ-9 Depression Total Score: 4 04/16/19 21 11:54 AM HUMAN RESOURCES OFFICE ASSISTANT documented as of this encounter Care Teams Central Office Maintainer Relationship Specialty Start Date End Date Fabien Mustafa MD PCP - General 04/28/16 06/09/22 Timo Loera MD [address] [address] PCP - General INTERNAL MEDICINE 06/10/22 documented as of this encounter
--- OUTSIDE RECORDS SUMMARY | 2024-06-07 09:06 | XMS_ITS | Encounter Summary ---
Author Organization [facility] Address Formerly [facility] [place] [address] Care Team Providers Care Seamark Advanced Operator Maintainer Name Role Phone Fabien Mustafa MD Primary Care Provider U Timo Vargas MD Primary Care Provider [phone] Encounter Details Date Type Department Care Team (Late st Contact Info) Description 02/14/2017 Abstract [facility] CONVERSION [address] [place] [address] , Generic Conversion, Social History Tobacco Use Types Packs/Day Years Used Date Smoking Tobacco: Never Assessed Comments Unknown Sex and Gender Information Value Date Recorded Sex Assigned at Not on file Legal Sex Female 2:04 PM PROTEIN CHEMIST Gender Identity Not on file Sexual Orientation [...] documented as of this encounter Care Teams Seamark Advanced Operator Maintainer Relationship Specialty Start Date End Date Fabien Mustafa MD PCP - General 04/28/16 06/09/22 Timo Loera MD [address] [facility] [address] [place] [address] PCP - General INTERNAL MEDICINE 06/10/22 documented as of this encounter
--- OUTSIDE RECORDS SUMMARY | 2024-06-07 09:06 | XMS_ITS | CONTINUITY OF CARE DOCUMENT ---
Author Name con andujar Address Unknown Organization [facility] Address [address] [facility] [address] [place] [address] Phone [phone] Care Team Providers Care Master Control Supervisor Name Role Phone KATHLEEN KEVIN MD Unavailable KATHLEEN KEVIN MD Unavailable [phone] INSURANCE PROVIDERS Payer name Policy type / Coverage type Triston red democrat [employer] [facility] [facility] Medicaid 0 [id number]
--- OUTSIDE RECORDS SUMMARY | 2024-06-07 09:06 | XMS_ITS | Encounter Summary ---
Author Organization [facility] Healthcare Address [address] [place] [address] Care Team Providers Care Take Off Worker Name Role Phone Unknown, Notinfile Primary Care Provider Unavail able Unknown, Notinfile Primary Care Provider Unavail able Zulema Dunaway Unavailable Unavailable Yas Gonzalez PATIENT SERVICES REP Primary Care Provider [phone] Bushra Martines MD Unavailable Leif Pfeiffer MD Unavailable Genny Pinto PhD Unavailable [phone] Greg Valentine MD Primary Care Provide r Iqra Kemp PATIENT SERVICES REP Unavailable [phone] Encounter Details Date Type Department Care Team (Late st Contact Info) Description 12/11/2019 [facility] Outreach [facility] Warm Hand Off Program [address] [place] [address] Dariela Vázquez Social History Tobacco Use Types Packs/Day Years Used Date Smoking Tobacco: Every Day Cigarettes Alcohol Use Standard Drinks/Week Comments Not Currently 0 (1 standard drink = 0.6 oz pur e alcohol) Comments No Sex and Gender Information Value Date Recorded Sex Assigned at Not on file Legal Sex Female 3:30 AM BOILER RELINER Gender Identity Female 01/19/2022 11:10 AM BOILER RELINER Sexual Orientation Choose not to disclose 2021 11:10 AM BOILER RELINER documented as of this encounter Plan of Treatment Not on file documented as of this encounter Visit Diagnoses Not on filedocumented in this encounter Additional Health Concerns Infection Onset Date Last Indicated Resolved Time COVID: Suspected 04/10/2023 04/10/2023 04/10/2023 8:59 AM BOILER RELINER COVID: Suspected 04/10/2023 04/10/2023 04/10/2023 2:39 PM BOILER RELINER documented as of this encounter Care Teams Take Off Worker Relationship Specialty Start Date End Date Unknown, Notinfile PCP - General 09/27/18 12/19/19 Unknown, Notinfile PCP - General 12/20/19 12/09/21 Yas Gonzalez NP PCP - General Nephrology 12/10/21 12/06/22 Greg Valentine MD [address] [place], [place] [id number] PCP - General Emergency Medicine 12/07/22 [address]ule[address]unaway Route Cdl Driver Addiction Medicine 02/25/20 Bushra Martines MD Radiation Oncologist Radiation Oncology 04/27/22 Leif Pfeiffer MD Surgeon Neurosurgery 04/27/22 Genny Pinto, PhD Nurse Practitioner Radiation Oncology 04/27/22 05/10/23 Iqra Kemp NP [address] [place] [address] Nurse Practitioner Radiation Oncology 05/11/23 documented as of this encounter
--- OUTSIDE RECORDS SUMMARY | 2024-06-07 09:06 | XMS_ITS | Encounter Summary ---
Author Organization [facility] Address [facility] [place] [address] Care Team Providers Care Fisher Net Name Role Phone Fabien Mustafa MD Primary Care Provider U Timo Vargas MD Primary Care Provider [phone] Encounter Details Date Type Department Care Team (Late st Contact Info) Description 11/08/2016 Abstract [facility] CONVERSION [address] [place] [address] , Generic Conversion, Social History Tobacco Use Types Packs/Day Years Used Date Smoking Tobacco: Never Assessed Comments Unknown Sex and Gender Information Value Date Recorded Sex Assigned at Not on file Legal Sex Female 2:04 PM BATTERY FILLER Gender Identity Not on file Sexual Orientation [...] documented as of this encounter Care Teams Fisher Net Relationship Specialty Start Date End Date Fabien Mustafa MD PCP - General 04/28/16 06/09/22 Timo Loera MD [address] [facility] [address] [place] [address] PCP - General INTERNAL MEDICINE 06/10/22 documented as of this encounter
--- OUTSIDE RECORDS SUMMARY | 2024-06-07 09:06 | XMS_ITS | Encounter Summary ---
Author Organization [facility] Address [address] [place] [address] Care Team Providers Care Paper Cutting Machine Operator Name Role Phone Fabien Mustafa MD Primary Care Provider U Timo Vargas MD Primary Care Provider [phone] Encounter Details Date Type Department Care Team (Late st Contact Info) Description 04/16/2020 [employer] Message [address] [place] [address] [facility], [facility] Provider RE:X-ray results Social History Tobacco Use [...] on file Legal Sex Female 2:04 PM HAND CEMENTER Gender Identity Not on file Sexual Orientation Not on file COVID-19 Exposure Response Date Recorded In the last month, have you been in contact with someone who was confirmed or suspected to have Coronavirus / COVID-19? No / Unsure 04/16/2020 11:32 AM HAND CEMENTER documented as of this encounter Plan of Treatment Not on file documented as of this encounter Visit Diagnoses Not on filedocumented in this encounter Additional Health Concerns Assessment Noted Time PHQ-9 Depression Total Score: 4 04/16/19 21 11:54 AM HAND CEMENTER documented as of this encounter Care Teams Paper Cutting Machine Operator Relationship Specialty Start Date End Date Fabien Mustafa MD PCP - General 04/28/16 06/09/22 Timo Loera MD [address] [address] PCP - General INTERNAL MEDICINE 06/10/22 documented as of this encounter
--- OUTSIDE RECORDS SUMMARY | 2024-06-07 09:06 | XMS_ITS | Encounter Summary ---
Author Organization [facility] Address [address] [place] [address] Care Team Providers Care Senior Devops Engineer Name Role Phone Fabien Mustafa MD Primary Care Provider Junior Dunaway Md, MD Primary Care Provider Unavailable Timo Loera MD Primary Care Provider [phone] Encounter Details Date Type Department Care Team (Late st Contact Info) Description 12/09/2015 Abstract [facility] CONVERSION [address] [place] [address] Junior Urbina MD Social History Tobacco Use Types Packs/Day Years Used Date Smoking Tobacco: Never Assessed Comments Unknown Sex and Gender Information Value Date Recorded Sex Assigned at Not on file Legal Sex Female 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
--- OUTSIDE RECORDS SUMMARY | 2024-06-07 09:06 | XMS_ITS | Encounter Summary ---
Author Organization [facility] Address [facility] [place] [address] Care Team Providers Care Banking Center Manager Name Role Phone Fabien Mustafa MD Primary Care Provider U Timo Vargas MD Primary Care Provider [phone] Encounter Details Date Type Department Care Team (Late st Contact Info) Description 10/17/2016 Abstract [facility] CONVERSION [address] [place] [address] , Generic Conversion, Social History Tobacco Use Types Packs/Day Years Used Date Smoking Tobacco: Never Assessed Comments Unknown Sex and Gender Information Value Date Recorded Sex Assigned at Not on file 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
--- OUTSIDE RECORDS SUMMARY | 2024-06-07 09:06 | XMS_ITS | Encounter Summary ---
Author Organization [facility] Address [address] [place] [address] Care Team Providers Care Entertainer & Comic Name Role Phone Fabien Mustafa MD Primary Care Provider U Timo Vargas MD Primary Care Provider [phone] Encounter Details Date Type Department Care Team (Late st Contact Info) Description 04/20/2020 [employer] Message [facility] [address] [place] [address] Fabien Mustafa MD RE: Medication [...] on file Legal Sex Female 2:04 PM MEN'S LOCKER ROOM ATTENDANT Gender Identity Not on file Sexual Orientation Not on file COVID-19 Exposure Response Date Recorded In the last month, have you been in contact with someone who was confirmed or suspected to have Coronavirus / COVID-19? No / Unsure 04/16/2020 11:32 AM MEN'S LOCKER ROOM ATTENDANT documented as of this encounter Plan of Treatment Not on file documented as of this encounter Visit Diagnoses Not on filedocumented in this encounter Additional Health Concerns Assessment Noted Time PHQ-9 Depression Total Score: 4 04/16/19 21 11:54 AM MEN'S LOCKER ROOM ATTENDANT documented as of this encounter Care Teams Entertainer & Comic Relationship Specialty Start Date End Date Fabien Mustafa MD PCP - General 04/28/16 06/09/22 Timo Loera MD [address] [address] PCP - General INTERNAL MEDICINE 06/10/22 documented as of this encounter
--- OUTSIDE RECORDS SUMMARY | 2024-06-07 09:06 | XMS_ITS | Encounter Summary ---
Author Organization [facility] Address [address] [place] [address] Care Team Providers Care Brooch Maker Novelty Name Role Phone Fabien Mustafa MD Primary Care Provider U Timo Vargas MD Primary Care Provider [phone] Encounter Details Date Type Department Care Team (Late st Contact Info) Description 06/27/2020 [employer] Message Enc [facility] Family & Internal Medicine [address] [address] Fabien Mustafa MD RE: Other [...] on file Legal Sex Female 2:04 PM PIE CUTTER Gender Identity Not on file Sexual Orientation [...] Total Score: 4 04/16/19 21 11:54 AM PIE CUTTER documented as of this encounter Care Teams Brooch Maker Novelty Relationship Specialty Start Date End Date Fabien Mustafa MD PCP - General 04/28/16 06/09/22 Timo Loera MD [address] [facility] [address] [place] [address] PCP - General INTERNAL MEDICINE 06/10/22 documented as of this encounter
--- OUTSIDE RECORDS SUMMARY | 2024-06-07 09:06 | XMS_ITS | Encounter Summary ---
Author Organization [facility] Address [address] [place] [address] Care Team Providers Care Refrigerating Oiler Name Role Phone Fabien Mustafa MD Primary Care Provider Junior Dunaway Md, MD Primary Care Provider Unavailable Timo Loera MD Primary Care Provider [phone] Encounter Details Date Type Department Care Team (Late st Contact Info) Description 03/25/2016 Abstract [facility] CONVERSION [address] [place] [address] Junior Urbina MD Social History Tobacco Use Types Packs/Day Years Used Date Smoking Tobacco: Never Assessed Comments Unknown Sex and Gender Information Value Date Recorded Sex Assigned at Not on file 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
--- OUTSIDE RECORDS SUMMARY | 2024-06-07 09:06 | XMS_ITS | Encounter Summary ---
Author Organization [facility] Address [address] [place] [address] Care Team Providers Care Referral Nurse Name Role Phone Fabien Mustafa MD Primary Care Provider U Timo Vargas MD Primary Care Provider [phone] Encounter Details Date Type Department Care Team (Late st Contact Info) Description 02/11/2020 Medication Management [facility] Medical [facility] Family & Internal Medicine [address] [address] Fabien Mustafa MD Social History Tobacco Use Types Packs/Day Years Used Date Smoking Tobacco: Every Day Cigarettes 0.5 30 Smokeless Tobacco: Never Comments:TRYING TO QUIT Alcohol Use Standard Drinks/Week Comments No 0 (1 standard drink = 0.6 oz pur e alcohol) Comments No Sex and Gender Information Value Date Recorded Sex Assigned at Not on file Legal Sex Female 2:04 PM MANGANESE HEATER Gender Identity Not on file Sexual Orientation Not on file documented as of this encounter Plan of Treatment Not on file documented as of this encounter Visit Diagnoses Diagnosis Acquired hypothyroidism- Primary Unspecified hypothyroidism documented in this encounter Care Teams Referral Nurse Relationship Specialty Start Date End Date Fabien Mustafa MD PCP - General 04/28/16 06/09/22 Timo Loera MD [address] [facility] [address] [place] [address] PCP - General INTERNAL MEDICINE 06/10/22 documented as of this encounter
--- OUTSIDE RECORDS SUMMARY | 2024-06-07 09:06 | XMS_ITS | Encounter Summary ---
Author Organization [facility] Address [address] [place] [address] Care Team Providers Care Polystyrene Molding Machine Tender Name Role Phone Fabien Mustafa MD Primary Care Provider U Timo Vargas MD Primary Care Provider [phone] Encounter Details Date Type Department Care Team (Late st Contact Info) Description 05/04/2020 [employer] Message [facility] [address] [place] [address] Fabien Mustafa MD RE: Other [...] on file Legal Sex Female 2:04 PM CARBON PLANT GRINDER Gender Identity Not on file Sexual Orientation Not on file COVID-19 Exposure Response Date Recorded In the last month, have you been in contact with someone who was confirmed or suspected to have Coronavirus / COVID-19? No / Unsure 04/16/2020 11:32 AM CARBON PLANT GRINDER documented as of this encounter Progress Notes * Halley Kennedy RN - 05/08/2020 10:06 AM CST Verified message was read by patient ON PLANT GRINDER documented in this encounter Plan of Treatment Not on file documented as of this encounter Visit Diagnoses Not on filedocumented in this encounter Additional Health Concerns Assessment Noted Time PHQ-9 Depression Total Score: 4 04/16/19 21 11:54 AM CARBON PLANT GRINDER documented as of this encounter Care Teams Polystyrene Molding Machine Tender Relationship Specialty Start Date End Date Fabien Mustafa MD PCP - General 04/28/16 06/09/22 Timo Loera MD [address] [address] PCP - General INTERNAL MEDICINE 06/10/22 documented as of this encounter
--- OUTSIDE RECORDS SUMMARY | 2024-06-07 09:06 | XMS_ITS | Encounter Summary ---
Author Organization [facility] Address [address] [place] [address] Care Team Providers Care Optical Instrument Inspector Name Role Phone Fabien Mustafa MD Primary Care Provider U Timo Vargas MD Primary Care Provider [phone] Encounter Details Date Type Department Care Team (Late st Contact Info) Description 04/30/[address] [employer] [address] [facility] [address] [place] [address] Fabien Mustafa MD RE:plasmacytoma in [...] on file Legal Sex Female 2:04 PM MANAGER APPLICATION Gender Identity Not on file Sexual Orientation Not on file COVID-19 Exposure Response Date Recorded In the last month, have you been in contact with someone who was confirmed or suspected to have Coronavirus / COVID-19? No / Unsure 04/16/2020 11:32 AM MANAGER APPLICATION documented as of this encounter Progress Notes * Halley Kennedy RN - 05/04/2020 9:31 AM CST Message left for patient to return call GER APPLICATION * Halley Kennedy RN - 05/01/2020 8:06 AM CST Please advise GER APPLICATION documented in this encounter Plan of Treatment Not on file documented as of this encounter Visit Diagnoses Not on filedocumented in this encounter Additional Health Concerns Assessment Noted Time PHQ-9 Depression Total Score: 4 04/16/19 21 11:54 AM MANAGER APPLICATION documented as of this encounter Care Teams Optical Instrument Inspector Relationship Specialty Start Date End Date Fabien Mustafa MD PCP - General 04/28/16 06/09/22 Timo Loera MD [address] [address] PCP - General INTERNAL MEDICINE 06/10/22 documented as of this encounter
--- OUTSIDE RECORDS SUMMARY | 2024-06-07 09:06 | XMS_ITS | Encounter Summary ---
Author Organization [facility] Address [facility] [place] [address] Care Team Providers Care Drink Mixer Name Role Phone Fabien Mustafa MD Primary Care Provider U Timo Vargas MD Primary Care Provider [phone] Encounter Details Date Type Department Care Team (Late st Contact Info) Description 08/11/2018 Abstract [facility] CONVERSION [address] [place] [address] , Generic Conversion, Social History Tobacco Use Types Packs/Day Years Used Date Smoking Tobacco: Never Assessed Comments No Sex and Gender Information Value Date Recorded Sex Assigned at Not on file Legal Sex Female 2:04 PM INSTRUCTOR OF NURSING Gender Identity Not on file Sexual Orientation [...] documented as of this encounter Care Teams Drink Mixer Relationship Specialty Start Date End Date Fabien Mustafa MD PCP - General 04/28/16 06/09/22 Timo Loera MD [address] [facility] [address] [place] [address] PCP - General INTERNAL MEDICINE 06/10/22 documented as of this encounter
[2024-06-07 09:44] LABS: Hematocrit 41.3 % (37.0-47.0); Hemoglobin 12.9 g/dL (12.0-15.0); Mean Corpuscular HGB Conc 31.2 g/dl (32-36); Mean Corpuscular Hemoglobin 27.9 pg (26-34); Mean Corpuscular Volume 89.4 fl (80-100); Mean Platelet Volume 11.2 fl (7.4-10.4); Platelet Count Result 179 k/mm3 (150-375); Red Blood Count 4.62 M/mm3 (4.2-5.4); Red Cell Distribution Width 13.3 % (11.5-14.5); White Blood Count 5.6 K/mm3 (4.5-10.0)
[2024-06-07 09:54] LABS: Alanine Aminotransferase 25 U/L (6-35); Albumin Level 4.2 g/dL (3.5-5.1); Alkaline Phosphatase 59 U/L (38-126); Anion Gap 5 mmol/L (4-12); Aspartate Amino Transferase 33 U/L (14-36); Bilirubin,Total 0.4 mg/dL (0.2-1.3); Blood Urea Nitrogen 16 mg/dL (7-17); Calcium 9.1 mg/dL (8.4-10.2); Carbon Dioxide 30 mmol/L (22-30); Chloride 105 mmol/L (98-107); Cholesterol 180 mg/dL (0-200); Estimated Glomerular Filt Rate > 60; Glucose 89 mg/dL (65-110); HDL Direct 60 mg/dL; Sodium 140 mmol/L (137-145); Triglycerides 91 mg/dL (<150)
[2024-06-07 10:05] LABS: LDL Cholesterol Direct 83 mg/dL
[2024-06-07 10:08] LABS: Influenza A QL RT-PCR Negative (Negative); Influenza B QL RT-PCR Negative (Negative); RSV RNA, RT-PCR Negative (Negative); SARS-CoV-2 RNA PCR Negative (Negative)
== END 2024-06-07 08:58 | disposition home or self-care (01) ==
PROVIDERS: PCP Nurse Practitioner Family; Visit Provider Nurse Practitioner Family
DX: M25.551 Pain in right hip (principal); I10 Essential (primary) hypertension; F41.9 Anxiety disorder, unspecified; F32.A Depression, unspecified; J31.0 Chronic rhinitis; R74.01 Elevation of levels of liver transaminase levels; K59.00 Constipation, unspecified; M43.16 Spondylolisthesis, lumbar region; F17.210 Nicotine dependence, cigarettes, uncomplicated; J02.9 Acute pharyngitis, unspecified; Z87.898 Personal history of other specified conditions; Z86.19 Personal history of other infectious and parasitic diseases; Z20.822 Contact with and (suspected) exposure to COVID-19
CPT/HCPCS: 36415; 73502; 80053; 80061; 85027; 87637

== ENCOUNTER 2024-11-18 07:40 | Outpatient (CLI) | payer OTHER, SELFPAY ==
--- NOTE | ~2024-11-18 | XR_ITS ---
Lumbar spine series Indication: M53.3 Comparison: CT abdomen and pelvis 01/05/2023 Technique: 3 views lumbar spine Findings: 6 nonrib-bearing lumbar-type vertebral bodies. No acute fracture. Grade 1 anterolisthesis of L4 on L5, as counting from above. Grade 1 retrolisthesis of L6 on S1, as counting from above. Vertebral bodies normal height. Mild disc disease L6/S1. Mild degenerative changes. SI joints congruent. Sacrum intact. IMPRESSION: 1. No acute abnormality. 2. Findings as above. Reviewed, dictated and finalized at location R.
--- NOTE | ~2024-11-18 | XR_ITS ---
XR sacroiliac joints min 3V 11/18/2024 08:13 Indication: Sacrococcygeal disorder Procedure: 3 views sacroiliac joints Comparison: 12/01/2022 Findings: Sacroiliac joints are symmetric bilaterally without significant degenerative change, ankylosis or erosion. Sacral foramen are symmetric. Impression: 1: No significant abnormality of the sacroiliac joints. Reviewed, dictated and finalized at location O. Impression: 1: No significant abnormality of the sacroiliac joints.
[2024-11-18 08:29] LABS: Alanine Aminotransferase 19 U/L (6-35); Albumin Level 4.5 g/dL (3.5-5.1); Alkaline Phosphatase 84 U/L (38-126); Anion Gap 8 mmol/L (4-12); Aspartate Amino Transferase 31 U/L (14-36); Bilirubin,Total 0.4 mg/dL (0.2-1.3); Blood Urea Nitrogen 12 mg/dL (7-17); Calcium 9.5 mg/dL (8.4-10.2); Carbon Dioxide 29 mmol/L (22-30); Chloride 101 mmol/L (98-107); Estimated Glomerular Filt Rate > 60; Glucose 95 mg/dL (65-110); Potassium 3.9 mmol/L (3.4-5.0); Sodium 138 mmol/L (137-145); Total Protein 8.1 g/dL (6.3-8.2)
[2024-11-18 09:41] LABS: Vitamin B12 271.0 pg/mL (239-931)
== END 2024-11-18 07:41 | disposition home or self-care (01) ==
PROVIDERS: PCP Nurse Practitioner Family; Visit Provider Nurse Practitioner Family
DX: Z78.0 Asymptomatic menopausal state (principal); I10 Essential (primary) hypertension; Q38.3 Other congenital malformations of tongue; F41.9 Anxiety disorder, unspecified; F32.A Depression, unspecified; Z87.898 Personal history of other specified conditions; J31.0 Chronic rhinitis; Z86.19 Personal history of other infectious and parasitic diseases; R74.01 Elevation of levels of liver transaminase levels; K59.00 Constipation, unspecified; N32.81 Overactive bladder; M53.3 Sacrococcygeal disorders, not elsewhere classified; M43.16 Spondylolisthesis, lumbar region; M25.551 Pain in right hip; F17.210 Nicotine dependence, cigarettes, uncomplicated; R79.89 Other specified abnormal findings of blood chemistry
CPT/HCPCS: 36415; 72100; 72202; 80053; 82607; 82746

== ENCOUNTER 2024-12-27 07:08 | Outpatient (CLI) | payer OTHER, SELFPAY ==
--- NOTE | ~2024-12-27 | CT_ITS ---
EXAMINATION: CT lung screening DATE: 12/27/2024 07:21 INDICATION: Personal history of nicotine dependence TECHNIQUE: Computed tomography (CT) of the chest was performed without intravenous contrast. The dose-length product was 61.64 mGy-cm. Automated exposure control and iterative reconstruction technique were employed. COMPARISON: None FINDINGS: Lung parenchyma within normal limits. No focal airspace consolidation. No pneumothorax. No endobronchial lesions. No suspicious pulmonary nodules or masses. Mild elevation of the right diaphragm. Mild atherosclerosis. No lymphadenopathy. Upper abdomen is unremarkable. IMPRESSION: 1. Lung-RADS category 1: Negative. Continue annual screening with noncontrast low-dose chest CT in 12 months. Reviewed, dictated and finalized at location O. IMPRESSION: 1. Lung-RADS category 1: Negative. Continue annual screening with noncontrast l ow-dose chest CT in 12 months.
== END 2024-12-27 07:09 | disposition home or self-care (01) ==
LOC: ANHIMG 07:08
PROVIDERS: PCP Nurse Practitioner Family; Visit Provider Nurse Practitioner Family
DX: Z12.2 Encounter for screening for malignant neoplasm of respiratory organs (principal); Z87.891 Personal history of nicotine dependence
CPT/HCPCS: 71271